=== PATIENT | female | born 1930 | race Caucasian/White ===

== ENCOUNTER 2019-07-11 05:09 | Emergency (ER) | payer MEDICARE ==
--- NOTE | 2019-07-11 05:16 | ED ---
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 She states that she thinks that there is blood bursting from her vagina and notes that there is black/brown stool in her pad. She does not know whether or not the discharge is from vaginal bleeding or stool. Per the pts daughter, the pt was supposed to be given an iron infusion for possible anemia. Pain severity is rated a 0/10. No aggravating or alleviating factors noted. She also reports back pain but denies abd pain. Allergies noted. Medications reviewed. - History of Current Complaint Stated Complaint: VAGINAL BLEEDING PER EMS Hx Obtained From: Patient, EMS Onset/Duration: Started Days Ago, Still Present Timing: Lasting Days Severity: Moderate Current Severity: Moderate Vaginal Bleeding Description: Brown Pain Intensity: 0 Associated Signs and Symptoms: Positive: Back Pain, Diarrhea. Negative: Abdominal Pain Additional Signs & Symptoms: Positive: Vaginal Bleeding - Allergy/Home Medications Allergies/Adverse Reactions: Allergies Allergy/AdvReac Type Severity Reaction Status Date / Time atorvastatin Allergy Severe muscle pain Verified 06/11/19 12:46 hydroxychloroquine Allergy Intermediate Rash Verified 06/11/19 12:46 methotrexate Allergy Intermediate Rash Verified 06/11/19 12:46 Penicillins Allergy Intermediate Rash Verified 06/11/19 12:46 PMH/Surg Hx/FS Hx/Imm Hx Endocrine/Hematology History: Denies: Hx Diabetes, Hx Thyroid Disease Cardiovascular History: Reports: Hx Hypertension, Other Cardiovascular Problems/ Disorders - Hx HTN Denies: Hx Pacemaker/ICD Respiratory History: Reports: Hx Asthma - Hx of, pt states no symptoms Denies: Hx Chronic Obstructive Pulmonary Disease (COPD) GI History: Reports: Other GI Disorders - pt states takes PPI for "gas" Denies: Hx Ulcer History: Reports: Other Problems/Disorders - Hx kidney stones, prolapsed bladder Denies: Hx Renal Disease Musculoskeletal History: Reports: Other Musculoskeletal History - rheumatoid arthritis Sensory History: Denies: Hx Hearing Aid Psychiatric History: Denies: Hx Panic Disorder - Surgical History Surgery Procedure, Year, and Place: Hernia repair , kidney stone Infectious Disease History: Denies: Hx Hepatitis, Hx Human Immunodeficiency Virus (HIV) - Family History Known Family History: Positive: Non-Contributory - Social History Alcohol Use: None Substance Use Type: Reports: None Smoking Status (MU): Never Smoked Tobacco Have You Smoked in the Last Year: No Review of Systems Positive: Diarrhea. Negative: Abdominal Pain Genitourinary: Other - pos - vaginal bleeding Musculoskeletal: Other - pos - back pain All Other Systems Reviewed And Are Negative: Yes Physical Exam - Summary Physical Exam Summary: Constitutional: Well-developed, Well-nourished, Alert. (-) Distressed Skin: Warm, Dry HENT: Normocephalic; Atraumatic Eyes: Conjunctiva normal Neck: Musculoskeletal ROM normal neck. (-) JVD, (-) Stridor, (-) Tracheal deviation Cardio: Rhythm regular, rate normal, Heart sounds normal; Intact distal pulses; The pedal pulses are 2+ and symmetric. Radial pulses are 2+ and symmetric. (-) Murmur Pulmonary/Chest wall: Effort normal. (-) Respiratory distress, (-) Wheezes, (-) Rales Abd: Soft, (-) tenderness, (-) Distension, (-) Guarding, (-) Rebound GIGU: Large quantity of stool in underwear, no blood present, stool is brown, no vaginal bleeding Musculoskeletal: (-) Edema Lymph: (-) Cervical adenopathy Neuro: Alert, Oriented x3 Psych: Mood and affect Normal Triage Information Reviewed: Yes Vital Signs Reviewed: Yes Diagnostics - Laboratory Result Diagrams: 07/11/19 05:36 07/11/19 05:36 Lab Statement: Any lab studies that have been ordered have been reviewed, and results considered in the medical decision making process. GIGU Course/Dx - Course Course Of Treatment: Patient is here with what she thought was vaginal bleeding. On arrival, patient was found to have a large quantity of stool in her underwear with no evidence of bleeding. Patient is overall well-appearing with normal vital signs. Patient is anemic at baseline with a hemoglobin at her baseline. 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 Patient's follow up with her PCP 6 hours after her discharge here. - Diagnoses Provider Diagnoses: Anemia, Diarrhea, CKD (chronic kidney disease) Discharge ED - Sign-Out/Discharge Documenting (check all that apply): Patient Departure - discharge Patient Received Moderate/Deep Sedation with Procedure: No - Discharge Plan Condition: Stable Disposition: HOME Patient Education Materials: Chronic Kidney Disease (ED), Anemia (ED) Referrals: Caron Mace MD [Primary Care Provider] - 3 Days Additional Instructions: Please make an appointment with your PCP as soon as possible. PLEASE RETURN TO EMERGENCY DEPARTMENT FOR ANY NEW OR WORSENING SYMPTOMS. Please follow up with your primary care physician. Please make all follow-ups in 1-3 days unless I advise you otherwise. - Billing Disposition and Condition Condition: STABLE Disposition: Home - Attestation Statements Document Initiated by Shonda: Yes Documenting Scribe: Oli Bee Provider For Whom Lyricibe is Documenting (Include Credential): Gilbert Peters MD Scribe Attestation: IOli, scribed for Gilbert Peters MD on 07/11/19 at 0638. Scribe Documentation Reviewed: Yes Provider Attestation: The documentation as recorded by the Oli morales accurately reflects the service I personally performed and the decisions made by me, Gilbert Peters MD Status of Scribe Document: Viewed
--- OUTSIDE RECORDS SUMMARY | 2019-07-11 05:23 | XMS REPORT | Continuity of Care Document ---
:1930 External Reference #:[id number] Author Name Michael Lowe M.D. (transmitted by agent of provider Terri Biswas) Address [address] [place] [id number] Care Team Providers Name Role Phone Caron Mace MD - Family Care Team Information Supervisor [employer] [phone] Medicine Problems Active Problems Provider Date Essential hypertension Jamar Goodrich, DO FACC Onset: 09/13/2016 Social History Type Date Description Comments Sex Unknown Tobacco Use Start: Unknown Never Smoked Cigarettes Smoking Status Reviewed: 06/30/19 Never Smoked Cigarettes ETOH Use Denies alcohol use Tobacco Use Start: Unknown Patient has never smoked Recreational Drug Use Denies Drug Use Exercise Type/Frequency Does not exercise Allergies, Adverse Reactions, Alerts Active Allergies Reaction Severity Comments Date Penicillin Hives Severe 01/19/2011 Methotrexate rash rash, rechallenged 06/22/2011 Hydroxychloroquine back pain and rash back pain and rash 06/22/2011 Sulfa Drugs Urticaria 09/05/2016 Medications Active Medications SIG Qnty Indications Ordering Provider Date Lisinopril-Hydrochlor Take 1/2 tablet 45tabs Jamar Goodrich, 05/12/2019 othiazide daily DO FACC 10-12.5mg Tablets Metoprolol Succinate 1/2 by mouth 45tabs R00.1 Jamar Goodrich, 09/13/2016 ER every day DO FACC 25mg Tablets ER 24HR Lovastatin take 1 tablet at Unknown 10mg Tablets bedtime Immunizations Description No Information Available Vital Signs Date Vital Result Comment 06/30/2019 3:13pm Height 63 inches 5'3" Weight 129.00 lb Heart Rate 62 /min BP Systolic Sitting 122 mmHg BP Diastolic Sitting 78 mmHg O2 % BldC Oximetry 98 % BMI (Body Mass Index) 22.8 kg/m2 09/26/2018 1:52pm Height 63 inches 5'3" Weight 132.00 lb W/O Shoes Heart Rate 55 /min reg BP Systolic Sitting 125 mmHg la Reg Cuff BP Diastolic Sitting 78 mmHg la Reg Cuff BP Systolic Standing 120 mmHg LA reg cuff BP Diastolic Standing 75 mmHg LA reg cuff Respiratory Rate 17 /min BMI (Body Mass Index) 23.4 kg/m2 Results Test Date Facility Test Result H/L Range Note Laboratory test 06/30/2019 [facility] Creatine 16 U/L Normal 10-[address] Kinase(CK) [place] [address] [phone] CBC Auto Diff 06/30/2019 [facility] White Blood 4.7 10^3/uL Normal 3.5-10.[address] [place] [address] [phone] Red Blood Count 3.25 10^6/uL Low 3.70-4.87 Hemoglobin 7.4 g/dL Low 12.0-16.0 Hematocrit 23 % Low 35-47 Mean Corpuscular Volume 71 fL Low 80-97 1 Mean Corpuscular Hemoglobin 23 pg Low 27-31 Mean Corpuscular HGB Conc 32 g/dL Normal 31-36 Red Cell Distribution Width 17 % High 10-15 Platelet Count 251 10^3/uL Normal 150-450 Mean Platelet Volume 8.8 fL Normal 7.4-10.4 Abs Neutrophils 2.7 10^3/uL Normal 1.5-7.7 Abs Lymphocytes 1.3 10^3/uL Normal 1.0-4.8 Abs Monocytes 0.3 10^3/uL Normal 0-0.8 Abs Eosinophils 0.3 10^3/uL Normal 0-0.6 Abs Basophils 0.1 10^3/uL Normal 0-0.2 Abs Nucleated RBC 0.0 10^3/uL Granulocyte % 56.9 % Lymphocyte % 28.8 % Monocyte % 7.4 % Eosinophil % 5.4 % Basophil % 1.5 % Nucleated Red Blood Cells % 0.0 Iron & Iron 06/30/2019 [facility] Total Iron 400 g/dL Normal 250-[address] [place] [address] Capacity [phone] Transferrin 286 mg/dL Normal 203-362 Iron < 20 g/dL Low 50-212 Unsaturated Iron Binding < 385 g/dL % Iron Saturation 5 % Low 15-55 Laboratory test 06/30/2019 [facility] Ferritin 7.4 ng/mL Low 11-[address] [place] [address] [phone] Vitamin B12 And 06/30/2019 [facility] Vitamin B12 597 pg/mL Normal 180-[address] [place] [address] [phone] Folic Acid (Folate) > 20.00 ng/mL >3.99 Laboratory test 06/30/2019 [facility] Erythrocyte Sed 45 mm/Hr High 0-[address] [place] [address] [phone] C Reactive Protein 1.19 mg/L Normal <8.01 Urine Culture And 06/11/2019 [facility] Urine SEE RESULT 3 , [address] [place] [address] [phone] Poc Urinalysis 06/11/2019 [facility] Poc Negative Negative [address] Glucose, [place] [address] Urine [phone] Poc Bilirubin, Urine Negative Negative Poc Ketone, Urine Negative Negative Poc Specific [place], Urine 1.020 Normal 1.010-1.030 Poc Blood, Urine 1+ Abnormal Negative Poc pH, Urine 6.0 Normal 5-9 Poc Protein, Urine 1+ Abnormal Negative Poc Urobilinogen, Urine 0.2 Negative Poc Nitrite, Urine Negative Negative Poc Leukocytes, Urine 3+ Abnormal Negative Poc Color, Urine Yellow Poc Clarity, Urine Cloudy 5 Comp Metabolic 06/11/2019 [facility] Sodium 138 mmol/L Normal 135-[address] [place] [address] [phone] Potassium 4.8 mmol/L Normal 3.5-5.0 Chloride 105 mmol/L Normal 101-111 Co2 Carbon Dioxide 27 mmol/L Normal 22-32 Anion Gap 6 mmol/L Normal 2-11 Calcium 9.1 mg/dL Normal 8.6-10.3 Albumin 3.9 g/dL Normal 3.2-5.2 Total Bilirubin 0.40 mg/dL Normal 0.2-1.0 Glucose 110 mg/dL High 70-100 Blood Urea Nitrogen 32 mg/dL High 6-24 Creatinine 1.80 mg/dL High 0.51-0.95 BUN/Creatinine Ratio 17.8 Normal 8-20 Total Protein 6.6 g/dL Normal 6.4-8.9 Globulin 2.7 g/dL Normal 2-4 Albumin/Globulin Ratio 1.4 Normal 1-3 Alkaline Phosphatase 51 U/L Normal 34-104 Alt 5 U/L Low 7-52 Ast 11 U/L Low 13-39 Egfr Non- 26.5 >60 Egfr 32.1 >60 6 Laboratory test 06/11/2019 [facility] Magnesium 2.1 mg/dL Normal 1.9-2.7 [address] [place] [address] [phone] TSH (Thyroid Stim Horm) 2.62 mcIU/mL Normal 0.34-5.60 8 CBC Auto 06/11/2019 [facility] White Blood 6.0 10^3/uL Normal 3.5-10.[address] [place] [address] [phone] Red Blood Count 3.36 10^6/uL Low 3.70-4.87 Hemoglobin 7.8 g/dL Low 12.0-16.0 Hematocrit 24 % Low 35-47 Mean Corpuscular Volume 72 fL Low 80-97 Mean Corpuscular Hemoglobin 23 pg Low 27-31 Mean Corpuscular HGB Conc 32 g/dL Normal 31-36 Red Cell Distribution Width 16 % High 10-15 Platelet Count 238 10^3/uL Normal 150-450 Mean Platelet Volume 9.3 fL Normal 7.4-10.4 Abs Neutrophils 3.9 10^3/uL Normal 1.5-7.7 Abs Lymphocytes 1.1 10^3/uL Normal 1.0-4.8 Abs Monocytes 0.6 10^3/uL Normal 0-0.8 Abs Eosinophils 0.3 10^3/uL Normal 0-0.6 Abs Basophils 0.1 10^3/uL Normal 0-0.2 Abs Nucleated RBC 0.0 10^3/uL Granulocyte % 65.7 % Lymphocyte % 19.1 % Monocyte % 9.7 % Eosinophil % 4.4 % Basophil % 1.1 % Nucleated Red Blood Cells % 0.0 Basic Metabolic 05/24/2019 [facility] Sodium 138 mmol/L Normal 135-[address] [place] [address] [phone] Potassium 4.7 mmol/L Normal 3.5-5.0 Chloride 105 mmol/L Normal 101-111 Co2 Carbon Dioxide 25 mmol/L Normal 22-32 Anion Gap 8 mmol/L Normal 2-11 Glucose 102 mg/dL High 70-100 Blood Urea Nitrogen 35 mg/dL High 6-24 Creatinine 1.84 mg/dL High 0.51-0.95 BUN/Creatinine Ratio 19.0 Normal 8-20 Calcium 9.1 mg/dL Normal 8.6-10.3 Egfr Non- 25.9 >60 Egfr 31.3 >60 9 Basic Metabolic 05/10/2019 [facility] Sodium 138 mmol/L Normal 135-145 Panel [address] [place] [address] [phone] Potassium 4.9 mmol/L Normal 3.5-5.0 Chloride 103 mmol/L Normal 101-111 Co2 Carbon Dioxide 26 mmol/L Normal 22-32 Anion Gap 9 mmol/L Normal 2-11 Glucose 116 mg/dL High 70-100 Blood Urea Nitrogen 41 mg/dL High 6-24 Creatinine 2.19 mg/dL High 0.51-0.95 BUN/Creatinine Ratio 18.7 Normal 8-20 Calcium 9.1 mg/dL Normal 8.6-10.3 Egfr Non- 21.2 >60 Egfr 25.6 >60 10 1 Consistent with Previous Results Reported on 06/11/19. 2 Normal Range 180 to 914 Indeterminate Range 145 to 180 Deficient Range <145 3 [id number] SEE RESULT BELOW Name: SOCORROSYBILMARIIBenedictNOREEN : [address]: Rachel Blackwell MD Acct: [id number] Unit: [id number] AGE: 89 Location: [facility] Re06/11/19 SEX: F Status: DEP ER SPEC: [id number] MARCOS: 06/11/19-1420 [facility] DR: Rachel Blackwell MD REQ: [id number] RECD: 06/11/19 STATUS: MARY REDMOND DR: Jamar Goodrich DO _ SOURCE: URINE SPDESC: ORDERED: Urine Culture COMMENTS: [id number] Procedure Result Reported Site Urine Culture Final 06/13/19- 0958 ML Organism 1 KLEBSIELLA PNEUMONIAE [place] Count >100,000 (Many) CFU/ML 1. KLEBSIELLA PNEUMONIAE [facility].I.[facility]. RX --------- ------ Ampicillin >=32 R Cefazolin <=4 S Cefepime <=1 S Ceftriaxone <=1 S Ciprofloxacin <=0.25 S Gentamicin <=1 S Levofloxacin <=0.12 S Meropenem <=0.25 S Nitrofurantoin 32 S Tetracycline >=16 R Pipercillin/Tazobactam <=4 S Trimethoprim/Sulfamethoxazole >=320 R Amoxicillin/Clavulanic Acid 8 S Aztreonam <=1 S Contact the Microbiology Department for any additional antibiotic reporting. * ML - Main Lab . END OF REPORT DEPARTMENT OF PATHOLOGY, [address] [place] [address] Eder Cortez M.D. Director [facility] # [id number] [address] Reporter: [id number] 6 Because ethnic data is not always readily available, this report includes an eGFR for both -Americans and non- Americans. The National Kidney Disease Education Program (NKDEP) does not endorse the use of the MDRD equation for patients that are not between the ages of 18 and 70, are , have extremes of body size, muscle mass, or nutritional status, or are non- or non-. According to the National Kidney Foundation, irrespective of diagnosis, the stage of the disease is based on the level of kidney function: Stage Description GFR(mL/min/1.73 m(2)) 1 Kidney damage with normal or decreased GFR 90 2 Kidney damage with mild decrease in GFR 60-89 3 Moderate decrease in GFR 30-59 4 Severe decrease in GFR 15-29 5 Kidney failure <15 (or dialysis) 7 [id number] 9 Because ethnic data is not always readily available, this report includes an eGFR for both -Americans and non- Americans. The National Kidney Disease Education Program (NKDEP) does not endorse the use of the MDRD equation for patients that are not between the ages of 18 and 70, are , have extremes of body size, muscle mass, or nutritional status, or are non- or non-. According to the National Kidney Foundation, irrespective of diagnosis, the stage of the disease is based on the level of kidney function: Stage Description GFR(mL/min/1.73 m(2)) 1 Kidney damage with normal or decreased GFR 90 2 Kidney damage with mild decrease in GFR 60-89 3 Moderate decrease in GFR 30-59 4 Severe decrease in GFR 15-29 5 Kidney failure <15 (or dialysis) 10 Because ethnic data is not always readily available, this report includes an eGFR for both -Americans and non- Americans. The National Kidney Disease Education Program (NKDEP) does not endorse the use of the MDRD equation for patients that are not between the ages of 18 and 70, are , have extremes of body size, muscle mass, or nutritional status, or are non- or non-. According to the National Kidney Foundation, irrespective of diagnosis, the stage of the disease is based on the level of kidney function: Stage Description GFR(mL/min/1.73 m(2)) 1 Kidney damage with normal or decreased GFR 90 2 Kidney damage with mild decrease in GFR 60-89 3 Moderate decrease in GFR 30-59 4 Severe decrease in GFR 15-29 5 Kidney failure <15 (or dialysis) Procedures Description No Information Available Medical Devices Description No Information Available Encounters Description No Information Available Assessments Date Code Description Provider 06/30/2019 M54.5 Low back pain Michael Lowe M.D. 06/30/2019 M54.6 Pain in thoracic spine Michael Lowe M.D. 06/30/2019 R70.0 Elevated erythrocyte sedimentation rate Michael Lowe M.D. 06/30/2019 D64.9 Anemia, unspecified Michael Lowe M.D. 06/30/2019 M79.10 Myalgia, unspecified site Michael Lowe M.D. Plan of Treatment Future Appointment(s):07/22/2019 4:20 pm - Michael Lowe M.D. at [facility]06/30/2019 - Michael Lowe M.D.M54.5 Low back painM54.6 Pain in thoracic zpcxsQ54.0 Elevated erythrocyte sedimentation rateD64.9 Anemia, unspecifiedFollow up:Follow up in 3 weeks or sooner if [id number] Myalgia, unspecified site Functional Status Description No Information Available Mental Status Description No Information Available Referrals Description No Information Available
--- OUTSIDE RECORDS SUMMARY | 2019-07-11 05:23 | XMS REPORT | Continuity of Care Document ---
:1930 External Reference #:[id number] Author Name CHIARA Bailey Address [address] [place] [address] Care Team Providers Name Role Phone Caron Mace M.D. 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 Problems Description No Information Available Social History Type Date Description Comments Sex Unknown Allergies, Adverse Reactions, Alerts Active Allergies Reaction Severity Comments Date Ampicillin 07/30/1999 Sulfa Drugs 07/30/1999 Macrodantin 07/30/1999 Medications Active Medications SIG Qnty Indications Ordering Provider Date Nitrofurantoin 1 by mouth 10caps Gail 06/12/2019 Macrocrystal twice a day x Bella, [employer] PROFESSIONAL 100mg Capsules 7Days Acetaminophen 1-2 by mouth 120tabs M54.9 Gail 06/12/2019 500mg Tablets every 12 hours Bella [employer] PROFESSIONAL as needed pain Lisinopril-Hydrochlorot 1 by mouth Unknown hiazide every day 10-12.5mg Tablets Metoprolol Succinate ER 1/2 by mouth Unknown every day 25mg Tablets ER 24HR Immunizations Description No Information Available Vital Signs Date Vital Result Comment 06/12/2019 2:09pm BP Systolic 100 mmHg BP Diastolic 70 mmHg Heart Rate 72 /min Body Temperature 98.1 F Respiratory Rate 18 /min Weight 129.00 lb 07/30/1999 10:47am BP Systolic 146 mmHg BP Diastolic 84 mmHg Body Temperature 97.9 F Height 65 inches 5'5" Weight 206.50 lb Results Description No Information Available Procedures Description No Information Available Medical Devices Description No Information Available Encounters Description No Information Available Assessments Date Code Description Provider 06/12/2019 M54.9 Dorsalgia, unspecified CHIARA Bailey 06/12/2019 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, thoracic region CHIARA Bailey 06/12/2019 R29.6 Repeated falls Gail Blanco, CHIARA 06/12/2019 R13.10 Dysphagia, unspecified CHIARA Bailey Plan of Treatment Future Appointment(s):08/07/2019 8:00 am - CHIARA Bailey at [facility]06/12/2019 - Gail Blanco, FNPM54.9 Dorsalgia, unspecifiedNew Medication:Acetaminophen 500 mg - 1-2 by mouth every 12 hours as needed painComments:I suspect scoliosis is to blame, and doubt we can do much for it Hot shower in the morning, stretch and gentle range of motion exercises every dayKeep active to the limits of comfort Call PATRICK if condition changes/worsens in any way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, thoracic taphadU17.6 Repeated kllqvX71.10 Dysphagia, unspecifiedComments:Moisten your food adequately and always sit up while eating Drink plenty of fluids with each mealAllFollow up: CPE with Dr Mace within the next 6 months Functional Status Description No Information Available Mental Status Description No Information Available Referrals Description No Information Available
[2019-07-11 06:15] LABS: ABS Lymphocytes 0.8 10^3/ul (1.0-4.8); ABS Monocytes 0.3 10^3/ul (0-0.8); ABS Neutrophils 5.2 10^3/ul (1.5-7.7); ALT 5 U/L (7-52); AST 13 U/L (13-39); Albumin 3.8 g/dL (3.2-5.2); Albumin/Globulin Ratio 1.3 (1-3); Alkaline Phosphatase 64 U/L (34-104); Anion Gap 11 mmol/L (2-11); Blood Urea Nitrogen 39 mg/dL (6-24); CO2 Carbon Dioxide 20 mmol/L (22-32); Chloride 101 mmol/L (101-111); EGFR African American 29.2 (>60); EGFR Non-African American 24.2 (>60); Eosinophil % 0.6 %; Glucose 152 mg/dL (70-100); Hematocrit 25 % (35-47); Mean Corpuscular HGB Conc 32 g/dL (31-36); Mean Corpuscular Hemoglobin 23 pg (27-31); Mean Corpuscular Volume 71 fL (80-97); Mean Platelet Volume 8.8 fL (7.4-10.4); Platelet Count 251 10^3/uL (150-450); Potassium 4.4 mmol/L (3.5-5.0); Red Blood Count 3.56 10^6 /uL (3.70-4.87); Red Cell Distribution Width 17 % (10-15); Sodium 132 mmol/L (135-145); Total Protein 6.8 g/dL (6.4-8.9); White Blood Count 6.4 10^3/uL (3.5-10.8)
[2019-07-11 06:55] VITALS: BP 123/63
[2019-07-11 14:34] LABS: % Iron Saturation 6 % (15-55); Iron 23 ug/dL (50-212); Total Iron Binding Capacity 396 mcg/dL (250-450); Transferrin 283 mg/dL (203-362)
[2019-07-11 14:54] LABS: Ferritin 7.4 ng/mL (11-307)
== END 2019-07-11 06:56 | disposition home or self-care (01) ==
LOC: ED 05:09
DX: I12.9 Hypertensive chronic kidney disease with stage 1 through stage 4 chronic kidney disease, or unspecified chronic kidney disease (principal); N18.9 Chronic kidney disease, unspecified; D63.1 Anemia in chronic kidney disease; R19.7 Diarrhea, unspecified; M54.9 Dorsalgia, unspecified; M06.9 Rheumatoid arthritis, unspecified; Z88.0 Allergy status to penicillin; Z88.8 Allergy status to other drugs, medicaments and biological substances
CPT/HCPCS: 36415; 80053; 82728; 83540; 83550; 85025; 99283

== ENCOUNTER 2019-09-29 05:48 | Inpatient (IN) | payer MEDICARE, OTHER ==
[~2019-09-29 05:48] MED LIST: Buffered Lidocaine 1% SYRIN* 1 ML/SYRINGE INTRADERM ONE
--- OUTSIDE RECORDS SUMMARY | 2019-09-29 05:52 | XMS REPORT | Continuity of Care Document ---
:1930 External Reference #:[id number] Author Name Sal Bennett MD (transmitted by agent of provider Matthias Boyle) Address [address] [place] [id number] Care Team Providers Name Role Phone Caorn Mace MD - Family Care Team Information Perl Developer [phone] Medicine Jomar Barth M.D. - Hematology & Care Team Information Perl Developer [phone] Oncology Problems Active Problems Provider Date Essential hypertension Jamar Goodrich DO [facility] Onset: 09/13/2016 Social History Type Date Description Comments Sex Unknown Tobacco Use Start: Unknown Never Smoked Cigarettes Smoking Status Reviewed: 09/19/19 Never Smoked Cigarettes ETOH Use Denies alcohol use Tobacco Use Start: Unknown Patient has never smoked Recreational Drug Use Denies Drug Use Exercise Type/Frequency Does not exercise Allergies, Adverse Reactions, Alerts Active Allergies Reaction Severity Comments Date Penicillin Hives Severe 01/19/2011 Methotrexate rash rash, rechallenged 06/22/2011 Hydroxychloroquine back pain and rash back pain and rash 06/22/2011 Sulfa Drugs Urticaria 09/05/2016 Ampicillin rash 09/19/2019 Medications Active Medications SIG Qnty Indications Ordering Provider Date Tramadol HCL take one 14tabs Michael Lowe, 07/08/2019 50mg capsule/tablet M.D. Tablets by mouth twice daily as needed for pain Iron (Ferrous take one 60tabs Michael Lowe, 07/05/2019 Sulfate) capsule/tablet M.D. 142(45Fe) mg daily by mouth Tablets ER History Medications Lisinopril-Hydrochlorothiazide Take 1/2 45tabs Jamar Cee 05/12/2019 - 10-12.5mg Tablets tablet daily DO Kp 09/10/2019 [facility] Immunizations Description No Information Available Vital Signs Date Vital Result Comment 09/19/2019 9:58am Height 63 inches 5'3" Weight 120.00 lb Heart Rate 72 /min BP Systolic Sitting 122 mmHg BP Diastolic Sitting 74 mmHg Respiratory Rate 16 /min Body Temperature 98.7 F BMI (Body Mass Index) 21.3 kg/m2 09/17/2019 8:46am Height 63 inches 5'3" Weight 120.00 lb with shoes Heart Rate 60 /min BP Systolic Sitting 120 mmHg Ra BP Diastolic Sitting 80 mmHg Ra BP Systolic Standing 116 mmHg Ra BP Diastolic Standing 80 mmHg Ra BMI (Body Mass Index) 21.3 kg/m2 Ejection Fraction 60-65% Echo 12 12/07 Results Test Acquired Date Facility Test Result H/L Range Note Laboratory test 06/30/2019 [facility] Creatine 16 U/L Normal 10-[address] Kinase(CK) [place] [address] [phone] CBC Auto Diff 06/30/2019 [facility] White Blood 4.7 Normal 3.5 -10.[address] Count 10^3/[place] [address] [phone] Red Blood Count 3.25 10^6/uL Low 3.70-4.87 [...] Cells % 0.0 Iron & Iron 06/30/2019 [facility] Total Iron 400 g/dL Normal 250-[address] [place] [address] Capacity [phone] Transferrin 286 mg/dL Normal 203-362 Iron < 20 g/dL Low 50-212 Unsaturated Iron Binding < 385 g/dL % Iron Saturation 5 % Low 15-55 Laboratory test 06/30/2019 [facility] Ferritin 7.4 ng/mL Low 11-[address] [place] [address] [phone] Vitamin B12 And 06/30/2019 [facility] Vitamin B12 597 pg/mL Normal 180-914 [address] [place] [address] [phone] Folic Acid (Folate) > 20.00 ng/mL >3.99 Laboratory test 06/30/2019 [facility] Erythrocyte Sed 45 mm/Hr High 0-[address] [place] [address] [phone] C Reactive Protein 1.19 mg/L Normal <8.01 Protein 06/30/2019 [facility] Total 6.9 g/dL 6.3 - Electrophoresis [address] Protein(Pep) 7.9 [place] [address] [phone] Albumin 3.1 g/dL Abnormal 3.4-4.7 Alpha-1 Globulin 0.3 g/dL 0.1-0.3 Alpha-2 Globulin 1.0 g/dL 0.6-1.0 Beta Globulin 1.1 g/dL 0.7-1.2 Gamma Globulin 1.5 g/dL 0.6-1.6 Albumin/Globulin Ratio 0.82 Impression See Comment 3 Urine Culture And 06/11/2019 [facility] Urine SEE RESULT 4 , [address] [place] [place] [address] [phone] Poc Urinalysis 06/11/2019 [facility] Poc Negative Negative [address] Glucose, [place] [address] Urine [phone] Poc Bilirubin, Urine Negative Negative Poc Ketone, Urine Negative Negative Poc Specific [place], Urine 1.020 Normal 1.010-1.030 Poc Blood, Urine 1+ Abnormal Negative Poc pH, Urine 6.0 Normal 5-9 Poc Protein, Urine 1+ Abnormal Negative Poc Urobilinogen, Urine 0.2 Negative Poc Nitrite, Urine Negative Negative Poc Leukocytes, Urine 3+ Abnormal Negative Poc Color, Urine Yellow Poc Clarity, Urine Cloudy 6 Comp Metabolic 06/11/2019 [facility] Sodium 138 mmol/L Normal 135-[address] [place] [address] [phone] Potassium 4.8 mmol/L Normal 3.5-5.0 Chloride 105 [...] Egfr Non- 26.5 >60 Egfr 32.1 >60 7 Laboratory test 06/11/2019 [facility] Magnesium 2.1 mg/dL Normal 1.9-2.7 [address] [place] [address] [phone] TSH (Thyroid Stim Horm) 2.62 mcIU/mL Normal 0.34-5.60 9 CBC Auto 06/11/2019 [facility] White Blood 6.0 10^3/uL Normal 3.5-10.[address] [place] [address] [phone] Red Blood Count 3.36 10^6/uL Low 3.70-4.87 [...] Blood Cells % 0.0 Basic Metabolic 05/24/2019 [facility] Sodium 138 mmol/L Normal 135-145 Panel [address] [place] [address] [phone] Potassium 4.7 mmol/L Normal 3.5-5.0 Chloride 105 mmol/L Normal 101-111 Co2 Carbon Dioxide 25 mmol/L Normal 22-32 Anion Gap 8 mmol/L Normal 2-11 Glucose 102 mg/dL High 70-100 Blood Urea Nitrogen 35 mg/dL High 6-24 Creatinine 1.84 mg/dL High 0.51-0.95 BUN/Creatinine Ratio 19.0 Normal 8-20 Calcium 9.1 mg/dL Normal 8.6-10.3 Egfr Non- 25.9 >60 Egfr 31.3 >60 10 Basic Metabolic 05/10/2019 [facility] Sodium 138 mmol/L Normal 135-145 Panel [address] [place] [address] [phone] Potassium 4.9 mmol/L Normal 3.5-5.0 Chloride 103 mmol/L Normal 101-111 Co2 Carbon Dioxide 26 mmol/L Normal 22-32 Anion Gap 9 mmol/L Normal 2-11 Glucose 116 mg/dL High 70-100 Blood Urea Nitrogen 41 mg/dL High 6-24 Creatinine 2.19 mg/dL High 0.51-0.95 BUN/Creatinine Ratio 18.7 Normal 8-20 Calcium 9.1 mg/dL Normal 8.6-10.3 Egfr Non- 21.2 >60 Egfr 25.6 >60 11 1 Consistent with Previous Results Reported on 06/11/19. 2 Normal Range 180 to 914 Indeterminate Range 145 to 180 Deficient Range <145 3 RESULT: No apparent monoclonal protein on serum electrophoresis. Test Performed by: [facility] [address] [place] [address] Transit Mixer Driver: Samy Tracey M.D. Ph.D.; CLIA# [id number] 4 [id number] 5 SEE RESULT BELOW Name: NOREEN GORDON : [address]: Rachel Blackwell MD Acct: [id number] Unit: [id number] AGE: 89 Location: [facility] Re06/11/19 SEX: F Status: DEP ER SPEC: [id number] MARCOS: 06/11/19-[address] [facility] [address]: Rachel Blackwell MD REQ: [id number] RECD: 06/11/19 STATUS: MARY REDMOND DR: Jamar Goodrich DO _ SOURCE: URINE SPDESC: ORDERED: Urine Culture COMMENTS: [id number] Procedure Result Reported Site Urine Culture Final 06/13/19- 0958 ML Organism 1 KLEBSIELLA PNEUMONIAE [place] Count >100,000 (Many) CFU/ML 1. KLEBSIELLA PNEUMONIAE [...] . END OF REPORT DEPARTMENT OF PATHOLOGY, [address] [place] [address] Eder Cortez M.D. Director [facility] # [id number] Plant Maintenance Manager: [id number] 7 Because ethnic data is not always readily [...] 15-29 5 Kidney failure <15 (or dialysis) 8 [id number] 10 Because ethnic data is not always [...] 15-29 5 Kidney failure <15 (or dialysis) 11 Because ethnic data is not always readily [...] 5 Kidney failure <15 (or dialysis) Procedures Date Code Description Status 09/17/2019 54837 EKG Tracing & Interpretation Completed 09/01/2019 26605661 Colonoscopy Completed Medical Devices Description No Information Available Encounters Type Date Location Provider Dx Diagnosis Office Visit 07/22/2019 [facility] Michael Lowe M54.5 Low back pain 4:20p Of Consumer Sales Representative M.D. M54.6 Pain in thoracic spine R70.0 Elevated erythrocyte sedimentation rate D64.9 Anemia, unspecified Office Visit 06/30/2019 3:00p [facility] Michael Lowe M54.5 Low back Of Consumer Sales Representative M.D. pain M54.6 Pain in thoracic spine R70.0 Elevated erythrocyte sedimentation rate D64.9 Anemia, unspecified M79.10 Myalgia, unspecified site Assessments Date Code Description Provider 09/17/2019 Z01.810 Encounter for preprocedural Jamar Goodrich, DO [facility] cardiovascular examination 09/17/2019 C18.9 Malignant neoplasm of colon, unspecified Jamar Goodrich, DO FAC 09/17/2019 I10 Essential (primary) hypertension Jamar Goodrich, DO [facility] 09/17/2019 D50.9 Iron deficiency anemia, unspecified Jamar Goodrich, DO FAC 09/17/2019 N18.9 Chronic kidney disease, unspecified Jamar Goodrich, DO [facility] 09/17/2019 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 07/22/2019 M54.6 Pain in thoracic spine Michael Lowe M.D. 07/22/2019 R70.0 Elevated erythrocyte sedimentation rate Michael Lowe M.D. 07/22/2019 D64.9 Anemia, unspecified Michael Lowe M.D. 06/30/2019 M54.5 Low back pain Michael Lowe M.D. 06/30/2019 M54.6 Pain in thoracic spine Michael Lowe M.D. 06/30/2019 R70.0 Elevated erythrocyte sedimentation rate Michael Lowe M.D. 06/30/2019 D64.9 Anemia, unspecified Michael Lowe M.D. 06/30/2019 M79.10 Myalgia, unspecified site Michael Lowe M.D. Plan of Treatment Future Appointment(s):09/23/2019 9:30 am - Clau Julian M.D. at [facility]11/24/2019 10:00 am - Michael Lowe M.D. at [facility]09/17/2019 - Jamar Goodrich DO FACCZ01.810 Encounter for preprocedural cardiovascular examinationNew Orders:Stress Test, Pharmacologic Nuclear (Lexiscan), Ordered: 09/17/19Follow up:Please schedule stress test [facility] office, any doctor next available F/u PRNC18.9 Malignant neoplasm of colon, bouznenoamyX22 Essential (primary) kiuyxcmglcnyN67.9 Iron deficiency anemia, xlirsknlbwmZ27.9 Chronic kidney disease, xkpjnwqgysdK29.3 Trifascicular block Functional Status Description No Information Available Mental Status Description No Information Available Referrals Refer to Reason for Referral Status Appt Date Alex Hawkins MD Please evaluate patient with significant iron Sent deficiency anemia for a possible transfusion and evaluate possible etiologies [address] [place] [address] [phone]
--- OUTSIDE RECORDS SUMMARY | 2019-09-29 05:52 | XMS REPORT | Continuity of Care Document ---
:1930 External Reference #:[id number] Author Name Jamar Goodrich DO [facility] (transmitted by agent of provider Coretta Gonzalez) Address [address] [place] [address] Care Team Providers Name Role Phone Caron Mace MD - Family Care Team Information Aquatic Habitat Biologist [phone] Medicine Jomar Barth M.D. - Hematology & Care Team Information Aquatic Habitat Biologist [phone] Oncology Problems Active Problems Provider Date Essential hypertension Jamar Goodrich DO [facility] Onset: 09/13/2016 Social History Type Date Description Comments Sex Unknown Tobacco Use Start: Unknown Never Smoked Cigarettes Smoking Status Reviewed: 09/17/19 Never Smoked Cigarettes ETOH Use Denies alcohol [...] 10-12.5mg Tablets tablet daily DO Kp 09/10/2019 FAC Immunizations Description No Information Available Vital Signs Date Vital Result Comment 09/17/2019 8:46am Height 63 inches 5'3" Weight 120.00 lb with shoes Heart Rate 60 /min BP Systolic Sitting 120 mmHg Ra BP Diastolic Sitting 80 mmHg Ra BP Systolic Standing 116 mmHg Ra BP Diastolic Standing 80 mmHg Ra BMI (Body Mass Index) 21.3 kg/m2 Ejection Fraction 60-65% Echo 12 12/0707/22/2019 4:25pm Height 63 inches 5'3" Weight 121.50 lb Heart Rate 59 /min BP Systolic Sitting 112 mmHg BP Diastolic Sitting 60 mmHg Pain Level 0 O2 % BldC Oximetry 98 % BMI (Body Mass Index) 21.5 kg/m2 Results Test Acquired Date Facility Test Result H/L Range Note Laboratory test 06/30/2019 [facility] Creatine 16 U/L Normal 10-[address] Kinase(CK) [place] [address] [phone] CBC Auto Diff 06/30/2019 [facility] White Blood 4.7 Normal 3.5 -10.[address] Count 10^3/[place] [address] [phone] Red Blood Count 3.25 10^6/uL Low 3.70-4.87 [...] Cells % 0.0 Iron & Iron 06/30/2019 [facility] Total Iron 400 g/dL Normal 250-[address] [place] [address] Capacity [phone] Transferrin 286 mg/dL Normal 203-362 Iron < 20 g/dL Low 50-212 Unsaturated Iron Binding < 385 g/dL % Iron Saturation 5 % Low 15-55 Laboratory test 06/30/2019 [facility] Ferritin 7.4 ng/mL Low 11-[address] [place] [address] [phone] Vitamin B12 And 06/30/2019 [facility] Vitamin B12 597 pg/mL Normal 180-914 [address] [place] [address] [phone] Folic Acid (Folate) > 20.00 ng/mL >3.99 Laboratory test 06/30/2019 [facility] Erythrocyte Sed 45 mm/Hr High 0-[address] [place] [address] [phone] C Reactive Protein 1.19 mg/L Normal <8.01 Protein 06/30/2019 [facility] Total 6.9 g/dL 6.3 - Electrophoresis [address] Protein(Pep) 7.9 [place] [address] [phone] Albumin 3.1 g/dL Abnormal 3.4-4.7 Alpha-1 Globulin 0.3 g/dL 0.1-0.3 Alpha-2 Globulin 1.0 g/dL 0.6-1.0 Beta Globulin 1.1 g/dL 0.7-1.2 Gamma Globulin 1.5 g/dL 0.6-1.6 Albumin/Globulin Ratio 0.82 Impression See Comment 3 Urine Culture And 06/11/2019 [facility] Urine SEE RESULT 4 , [address] [place] [address] [phone] Poc Urinalysis 06/11/2019 [facility] Poc Negative Negative [address] Glucose, [place] [address] Urine [phone] Poc Bilirubin, Urine Negative Negative Poc Ketone, Urine Negative Negative Poc Specific [place], Urine 1.020 Normal 1.010-1.030 Poc Blood, Urine 1+ Abnormal Negative Poc pH, Urine 6.0 Normal 5-9 Poc Protein, Urine 1+ Abnormal Negative Poc Urobilinogen, Urine 0.2 Negative Poc Nitrite, Urine Negative Negative Poc Leukocytes, Urine 3+ Abnormal Negative Poc Color, Urine Yellow Poc Clarity, Urine Cloudy 6 Comp Metabolic 06/11/2019 [facility] Sodium 138 mmol/L Normal 135-[address] [place] [address] [phone] Potassium 4.8 mmol/L Normal 3.5-5.0 Chloride 105 [...] Egfr 32.1 >60 7 Laboratory test 06/11/2019 [facility] Magnesium 2.1 mg/dL Normal 1.9-2.[address] [place] [address] [phone] TSH (Thyroid Stim Horm) 2.62 mcIU/mL Normal 0.34-5.60 9 CBC Auto 06/11/2019 [facility] White Blood 6.0 10^3/uL Normal 3.5-10.[address] [place] [address] [phone] Red Blood Count 3.36 10^6/uL Low 3.70-4.87 [...] Blood Cells % 0.0 Basic Metabolic 05/24/2019 [facility] Sodium 138 mmol/L Normal 135-145 Panel [address] [place] [address] [phone] Potassium 4.7 mmol/L Normal 3.5-5.0 Chloride 105 mmol/L Normal 101-111 Co2 Carbon Dioxide 25 mmol/L Normal 22-32 Anion Gap 8 mmol/L Normal 2-11 Glucose 102 mg/dL High 70-100 Blood Urea Nitrogen 35 mg/dL High 6-24 Creatinine 1.84 mg/dL High 0.51-0.95 BUN/Creatinine Ratio 19.0 Normal 8-20 Calcium 9.1 mg/dL Normal 8.6-10.3 Egfr Non- 25.9 >60 Egfr 31.3 >60 10 Basic Metabolic 05/10/2019 [facility] Sodium 138 mmol/L Normal 135-145 Panel [address] [place], [place] [address] [phone] Potassium 4.9 mmol/L Normal 3.5-5.0 Chloride 103 [...] protein on serum electrophoresis. Test Performed by: [facility] [address] [place] [address] Cookie Breaker: Samy Tracey M.D. Ph.D.; CLIA# [id number] 4 [id number] 5 SEE RESULT BELOW Name: NOREEN GORDON : [address]: Rachel Blackwell MD Acct: [id number] Unit: [id number] AGE: 89 Location: [facility] Re06/11/19 SEX: F Status: DEP ER SPEC: [id number] MARCOS: 06/11/19-[address] [facility] [address]: Rachel Blackwell MD REQ: [id number] RECD: 06/11/19 STATUS: MARY REDMOND DR: Jamar Goodrich DO _ SOURCE: URINE SPDESC: ORDERED: Urine Culture COMMENTS: [id number] Procedure Result Reported Site Urine Culture Final 06/13/19- 0958 ML Organism 1 KLEBSIELLA PNEUMONIAE [place] Count >100,000 (Many) CFU/ML 1. KLEBSIELLA PNEUMONIAE [...] . END OF REPORT DEPARTMENT OF PATHOLOGY, [address] [place] [address] Eder Cortez M.D. Director [facility] # [id number] 6 Animal Rides Manager: [id number] 7 Because ethnic data is not always [...] 5 Kidney failure <15 (or dialysis) 8 [id number] 10 Because ethnic data is not always [...] dialysis) Procedures Date Code Description Status 09/17/2019 17819 EKG Tracing & Interpretation Completed 09/01/2019 31118947 Colonoscopy Completed Medical Devices Description No Information Available Encounters Type Date Location Provider Dx Diagnosis Office Visit 09/17/2019 [facility] Jamar Cee Z01.810 Encounter for 9:00a Of Elo Goodrich DO preprocedural [facility] cardiovascular examination Office Visit 07/22/2019 Rheumatology Michael Lowe M54.5 Low back pain 4:20p Services Of Elo M.DCheyanne M54.6 Pain in thoracic spine R70.0 Elevated erythrocyte sedimentation rate D64.9 Anemia, unspecified Office Visit 06/30/2019 3:00p [facility]ology Services Michael Lowe M54.5 Low back Of Elo M.DCheyanne pain M54.6 Pain in thoracic spine R70.0 Elevated erythrocyte sedimentation rate D64.9 Anemia, unspecified M79.10 Myalgia, unspecified site Assessments Date Code Description Provider 09/17/2019 Z01.810 Encounter for preprocedural Jamar Goodrich DO [facility] cardiovascular examination 07/22/2019 M54.5 Low back pain Michael Lowe [...] 9:30 am - Clau Julian M.D. at [facility]11/24/2019 10:00 am - Michael Lowe M.D. at [facility]09/17/2019 - [facility] Encounter for preprocedural cardiovascular examinationNew Orders:Stress Test, Pharmacologic Nuclear (Lexiscan), Ordered: 09/17/19Follow up:Please schedule stress test [facility] office, any doctor next available F/u PRN Functional Status Description No Information Available Mental Status Description No Information Available Referrals Refer to Dr Reason for Referral Status Appt Date Alex Hawkins MD Please evaluate patient with significant iron Sent deficiency anemia for a possible transfusion and evaluate possible etiologies [address] [facility] [address] [place] [address] [phone]
--- OUTSIDE RECORDS SUMMARY | 2019-09-29 05:52 | XMS REPORT | Continuity of Care Document ---
:1930 External Reference #:[id number] Author Name Sal Bennett MD (transmitted by agent of provider Sarah López) Address [address] [place] [id number] Care Team Providers Name Role Phone Caron Mace MD - Family Care Team Information Setup Operator [phone] Medicine Problems Active Problems Provider Date Essential hypertension Jamar Goodrich DO [facility] Onset: 09/13/2016 Social History Type Date Description Comments Sex Unknown Tobacco Use Start: Unknown Never Smoked Cigarettes Smoking Status Reviewed: 09/25/19 Never Smoked Cigarettes ETOH Use Denies alcohol [...] Medications Active Medications SIG Qnty Indications Ordering Date Provider Neomycin 500mg tablets take 6units Sal Treadwell 09/25/2019 2 tablets by mouth MD Sabrina at 1pm, 2pm, 11pm the day before surgery Metronidazole one tablet by mouth 3tabs Sal Treadwell 09/25/2019 500mg at 1pm, 2 pm, and MD Sabrina Tablets 11pm the day before surgery Suprep Bowel Prep Kit take according to 354ml Sal Treadwell 09/25/2019 the instructions MD Sabrina 17.5-3.13-1.6GM/177ML you received, take Solution one dose at noon and the second dose at 8pm before the oral antibiotics Tramadol HCL take one 14tabs Michael Lowe, 07/08/2019 50mg capsule/tablet by M.D. Tablets mouth twice daily as needed for pain Iron (Ferrous take one 60tabs Michael Lowe, 07/05/2019 Sulfate) capsule/tablet M.DCheyanne 142(45Fe) mg daily by mouth Tablets ER History Medications Lisinopril-Hydrochlorothiazide Take 1/2 45tabs Jamar S. 05/12/2019 - 10-12.5mg Tablets tablet daily Goodrich, DO 09/10/2019 FACC Medications Administered in Office Medication SIG Qnty Indications Ordering Provider Date Inj, Regadenoson, 0.1 MG Andrew Malave M.D., 09/23/2019 Injection FACC, FASNC Technetium TC 99M Andrew Malave M.D., 09/23/2019 Tetrofosmin, Per Unit Dose FACC, FASNC Up To 40 Millicuries Injection Technetium TC 99M Andrew Malave M.D., 09/23/2019 Tetrofosmin, Per Unit Dose FACC, FASEDWARD Up To 40 Millicuries Injection Immunizations Description No Information Available Vital Signs Date Vital Result Comment 09/25/2019 2:46pm Height 63 inches 5'3" Weight 120.00 lb Heart Rate 62 /min BP Systolic Sitting 124 mmHg BP Diastolic Sitting 76 mmHg Respiratory Rate 12 /min Body Temperature 98.7 F BMI (Body Mass Index) 21.3 kg/m2 09/19/2019 9:58am Height 63 inches 5'3" Weight 120.00 lb Heart Rate 72 /min BP Systolic Sitting 122 mmHg BP Diastolic Sitting 74 mmHg Respiratory Rate 16 /min Body Temperature 98.7 F BMI (Body Mass Index) 21.3 kg/m2 Results Test Acquired Date Facility Test Result H/L Range Note Protein 06/30/2019 [facility] Total 6.9 g/dL 6.3 - 7.[address] Protein([place] [address] p) [phone] Albumin 3.1 g/dL Abnormal 3.4-4.7 Alpha-1 Globulin 0.3 g/dL 0.1-0.3 Alpha-2 Globulin 1.0 g/dL 0.6-1.0 Beta Globulin 1.1 g/dL 0.7-1.2 Gamma Globulin 1.5 g/dL 0.6-1.6 Albumin/Globulin Ratio 0.82 Impression See Comment 1 Laboratory test 06/30/2019 [facility] Erythrocyte Sed 45 mm/Hr High 0-[address] [place] [address] [phone] C Reactive Protein 1.19 mg/L Normal <8.01 Vitamin B12 06/30/2019 [facility] Vitamin B12 597 pg/mL Normal 180-914 [address] F[address] [place] [address] [phone] Folic Acid (Folate) > 20.00 ng/mL >3.99 Laboratory test 06/30/2019 [facility] Ferritin 7.4 ng/mL Low 11-[address] [place] [address] [phone] Iron & Iron 06/30/2019 [facility] Total Iron 400 g/dL Normal 250-[address] [place] [address] Capacity [phone] Transferrin 286 mg/dL Normal 203-362 Iron < 20 g/dL Low 50-212 Unsaturated Iron Binding < 385 g/dL % Iron Saturation 5 % Low 15-55 CBC Auto 06/30/2019 [facility] White Blood 4.7 10^3/uL Normal 3.5-10.[address] [place] [address] [phone] Red Blood Count 3.25 10^6/uL Low 3.70-4.87 Hemoglobin 7.4 g/dL Low 12.0-16.0 Hematocrit 23 % Low 35-47 Mean Corpuscular Volume 71 fL Low 80-97 3 Mean Corpuscular Hemoglobin 23 pg Low 27-31 [...] % Nucleated Red Blood Cells % 0.0 Laboratory test 06/30/2019 [facility] Creatine 16 U/L Normal 10-[address] Kinase(CK) [place] [address] [phone] Urine Culture 06/11/2019 [facility] Urine SEE RESULT 4, And [address] Culture BELOW 5 [place] [address] [phone] Poc Urinalysis 06/11/2019 [facility] Poc Glucose, Negative Negative [address] [place] [address] [phone] Poc Bilirubin, Urine Negative Negative Poc Ketone, Urine Negative Negative Poc Specific [place], Urine 1.020 Normal 1.010-1.030 Poc Blood, Urine 1+ Abnormal Negative Poc pH, Urine 6.0 Normal 5-9 Poc Protein, Urine 1+ Abnormal Negative Poc Urobilinogen, Urine 0.2 Negative Poc Nitrite, Urine Negative Negative Poc Leukocytes, Urine 3+ Abnormal Negative Poc Color, Urine Yellow Poc Clarity, Urine Cloudy 6 Comp Metabolic 06/11/2019 [facility] Sodium 138 mmol/L Normal 135-[address] [place] [address] [phone] Potassium 4.8 mmol/L Normal 3.5-5.0 Chloride 105 [...] Egfr 32.1 >60 7 Laboratory test 06/11/2019 [facility] Magnesium 2.1 mg/dL Normal 1.9-2.7 [address] [place] [address] [phone] TSH (Thyroid Stim Horm) 2.62 mcIU/mL Normal 0.34-5.60 9 CBC Auto 06/11/2019 [facility] White Blood 6.0 10^3/uL Normal 3.5-10.[address] [place] [address] [phone] Red Blood Count 3.36 10^6/uL Low 3.70-4.87 [...] Blood Cells % 0.0 Basic Metabolic 05/24/2019 [facility] Sodium 138 mmol/L Normal 135-145 Panel [address] [place] [address] [phone] Potassium 4.7 mmol/L Normal 3.5-5.0 Chloride 105 mmol/L Normal 101-111 Co2 Carbon Dioxide 25 mmol/L Normal 22-32 Anion Gap 8 mmol/L Normal 2-11 Glucose 102 mg/dL High 70-100 Blood Urea Nitrogen 35 mg/dL High 6-24 Creatinine 1.84 mg/dL High 0.51-0.95 BUN/Creatinine Ratio 19.0 Normal 8-20 Calcium 9.1 mg/dL Normal 8.6-10.3 Egfr Non- 25.9 >60 Egfr 31.3 >60 10 Basic Metabolic 05/10/2019 [facility] Sodium 138 mmol/L Normal 135-[address] [place] [address] [phone] Potassium 4.9 mmol/L Normal 3.5-5.0 Chloride 103 mmol/L Normal 101-111 Co2 Carbon Dioxide 26 mmol/L Normal 22-32 Anion Gap 9 mmol/L Normal 2-11 Glucose 116 mg/dL High 70-100 Blood Urea Nitrogen 41 mg/dL High 6-24 Creatinine 2.19 mg/dL High 0.51-0.95 BUN/Creatinine Ratio 18.7 Normal 8-20 Calcium 9.1 mg/dL Normal 8.6-10.3 Egfr Non- 21.2 >60 Egfr 25.6 >60 11 1 RESULT: No apparent monoclonal protein on serum electrophoresis. Test Performed by: [facility] [address] [place] [address] Gang Leader: Samy Tracey M.D. Ph.D.; CLIA# [id number] 2 Normal Range 180 to 914 Indeterminate Range 145 to 180 Deficient Range <145 3 Consistent with Previous Results Reported on 06/11/19. 4 [id number] 5 SEE RESULT BELOW Name: NOREEN GORDON : [address]: Rachel Blackwell MD Acct: [id number] Unit: [id number] AGE: 89 Location: [facility] Re06/11/19 SEX: F Status: DEP ER SPEC: [id number] MARCOS: 06/11/19-[address] [facility] [address]: Rachel Blackwell MD REQ: [id number] RECD: 06/11/19 STATUS: MARY [facility] DR: Jamar Goodrich DO _ SOURCE: URINE [facility]: ORDERED: Urine Culture COMMENTS: [id number] Procedure Result Reported Site Urine Culture Final 06/13/19- 0958 ML Organism 1 KLEBSIELLA PNEUMONIAE [place] Count >100,000 (Many) CFU/ML 1. KLEBSIELLA PNEUMONIAE [...] . END OF REPORT DEPARTMENT OF PATHOLOGY, [address] [place] [address] Eder Cortez M.D. Director [facility] # [id number] 6 Market Master: [id number] 7 Because ethnic data is not always [...] 5 Kidney failure <15 (or dialysis) 8 [id number] 9 [id number] 10 Because ethnic data is not always [...] (or dialysis) Procedures Date Code Description Status 09/23/2019 76095 Stress Test Completed 09/23/2019 36618 Myocardial Perfusion Imaging Tomographic (Spect) Completed Multiple Studies 09/17/2019 64592 EKG Tracing & Interpretation Completed 09/01/2019 [id number] Colonoscopy Completed Medical Devices Description No Information Available Encounters Type Date Location Provider Dx Diagnosis Office Visit 09/19/2019 [facility] Sal Treadwell C18.9 Malignant neoplasm of 10:00a [facility] MD colon, unspecified Office Visit 09/17/2019 [facility] Jamar Cee Z01.810 Encounter for 9:00a Of Elo Goodrich DO FACBen preprocedural cardiovascular examination C18.9 Malignant neoplasm of colon, unspecified I10 Essential (primary) hypertension D50.9 Iron deficiency anemia, unspecified N18.9 Chronic kidney disease, unspecified 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 pain M54.6 Pain in thoracic spine R70.0 Elevated erythrocyte sedimentation rate D64.9 Anemia, unspecified Office Visit 06/30/2019 3:00p [facility] Michael Lowe M54.5 Low back Of Manipulator Operator M.D. pain M54.6 Pain in thoracic spine R70.0 Elevated erythrocyte sedimentation rate D64.9 Anemia, unspecified M79.10 Myalgia, unspecified site Assessments Date Code Description Provider 09/24/2019 C18.9 Malignant neoplasm of colon, Sal Bennett MD unspecified 09/23/2019 R94.31 Abnormal electrocardiogram [ECG] [EKG] Clau Julian M.D. 09/23/2019 Z01.810 Encounter for preprocedural Andrew Malave M.D., cardiovascular examination [facility] 09/23/2019 R94.31 Abnormal electrocardiogram [ECG] [EKG] Andrew Malave M.D., [facility] 09/19/2019 C18.9 Malignant neoplasm of colon, Sal Bennett MD unspecified 09/17/2019 Z01.810 Encounter for preprocedural Jamar Goodrich, DO [facility] cardiovascular examination 09/17/2019 C18.9 Malignant neoplasm of colon, Jamar Goodrich, DO [facility] unspecified 09/17/2019 I10 Essential (primary) hypertension Jamar Goodrich, DO [facility] 09/17/2019 D50.9 Iron deficiency anemia, unspecified Jamar Goodrich, DO [facility] 09/17/2019 N18.9 Chronic kidney disease, unspecified Jamar Goodrich, DO [facility] 09/17/2019 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 07/22/2019 M54.6 Pain in thoracic spine Michael Lowe M.D. 07/22/2019 R70.0 Elevated erythrocyte sedimentation Michael Lowe M.D. rate 07/22/2019 D64.9 Anemia, unspecified Michael Lowe M.D. 06/30/2019 M54.5 Low back pain Michael Lowe M.D. 06/30/2019 M54.6 Pain in thoracic spine Michael Lowe M.D. 06/30/2019 R70.0 Elevated erythrocyte sedimentation Michael Lowe M.D. rate 06/30/2019 D64.9 Anemia, unspecified Michael Lowe M.D. 06/30/2019 M79.10 Myalgia, unspecified site Michael Lowe M.D. Plan of Treatment Future Appointment(s):09/29/2019 7:30 am - Sal Bennett MD at [facility]11/24/2019 10:00 am - Michael Lowe M.D. at [facility]09/19/2019 - Sal Bennett, MDC18.9 Malignant neoplasm of colon, unspecifiedComments:I discussed her colon cancer with her in the room with 2 other members of her family. We talked about the nature of this near obstructing colon cancer and the risk for complete obstruction. We discussed treatment options including no treatment versus colectomy. We discussed the risks of surgery including but not limited to bleeding, infection, injury to the bowel, the ureter, other intra-abdominalcontents including the liver, anastomotic leak, AK, pneumonia, PE, arrhythmia, all explained to the patient. Again the option of no treatment was given but not recommended. We discussed her age and quality of life and she definitely wants to proceed with surgery. She wishes to proceed with colectomy, gives consent, and all questions were answered. Plan of robotic right colectomy pending her stress test results. Functional Status Description No Information Available Mental Status Description No Information Available Referrals Refer to Reason for Referral Status Appt Date Alex Hawkins MD Please evaluate patient with significant iron Sent deficiency anemia for a possible transfusion and evaluate possible etiologies [address] [place] [address] [phone]
--- OUTSIDE RECORDS SUMMARY | 2019-09-29 05:53 | XMS REPORT | Continuity of Care Document ---
:1930 External Reference #:[id number] Author Name Padmini Castro PA-C Address [address] [place] [address] Care Team Providers Name Role Phone Jomar Barth MD - Care Team Information Barrel Inspector [phone] Oncology/Phys/Osteo Caron Mace MD Care Team Information Barrel Inspector [phone] Problems Active Problems Provider Date Essential hypertension Padmini Castro PA-C Onset: 08/29/2019 Gastrointestinal tract finding Padmini Castro PA-C Onset: 08/28/2019 Melena Padmini Castro PA-C Onset: 08/28/2019 Iron deficiency anemia Padmini Castro PA-C Onset: 08/28/2019 Social History Type Date Description Comments Sex Unknown Tobacco Use Start: Unknown Patient has never smoked Smoking Status Reviewed: 08/28/19 Patient has never smoked Allergies, Adverse Reactions, Alerts Active Allergies Reaction Severity Comments Date Ampicillin 08/10/2019 Medications Active Medications SIG Qnty Indications Ordering Date Provider Peg 3350/Electrolytes use as directed 4000ml Som DCheyanne 08/28/2019 MD Jori 240gm Solution Rec Acetaminophen 1-2 by mouth 120tabs M54.9 Bella, 06/12/2019 500mg every 12 hours HAKEEM Reynolds Tablets as needed pain Lisinopril-Hydrochloro 1 by mouth every Unknown thiazide day 10-12.5mg Tablets Metoprolol Succinate 1/2 by mouth Unknown ER every day 25mg Tablets ER 24HR Iron Supplement Unknown Immunizations Description No Information Available Vital Signs Date Vital Result Comment 08/28/2019 3:07pm Height 63 inches 5'3" Weight 118.00 lb per dtr., last week BP Systolic 120 mmHg BP Diastolic 78 mmHg Heart Rate 101 /min BMI (Body Mass Index) 20.9 kg/m2 Results Test Acquired Date Facility Test Result H/L Range Note Xray 08/25/2019 [facility] Rad[facility] CT, Abd & <pending> Pelvis W/O Contrast CBC Auto 08/08/2019 N2N/CCD Import White Blood 8.5 10^3/uL 3.5-10.8 Diff Count Red Blood Count 3.72 10^6/uL 3.70-4.87 Hemoglobin 8.7 g/dL Low 12.0-16.0 Hematocrit 28 % Low 35-47 Mean Corpuscular Volume 74 fL Low 80-97 1 Mean Corpuscular Hemoglobin 23 pg Low 27-31 Mean Corpuscular HGB Conc 32 g/dL 31-36 Red Cell Distribution Width 21 % High 10-15 Platelet Count 379 10^3/uL 150-450 Mean Platelet Volume 7.6 fL 7.4-10.4 Abs Neutrophils 7.1 10^3/uL 1.5-7.7 Abs Lymphocytes 0.7 10^3/uL Low 1.0-4.8 Abs Monocytes 0.5 10^3/uL 0-0.8 Abs Eosinophils 0.1 10^3/uL 0-0.6 Abs Basophils 0.0 10^3/uL 0-0.2 Abs Nucleated RBC 0.0 10^3/uL Granulocyte % 84.0 % Lymphocyte % 8.6 % Monocyte % 5.7 % Eosinophil % 1.2 % Basophil % 0.5 % Nucleated Red Blood Cells % 0.0 1 Comp Metabolic Panel 08/08/2019 N2N/CCD Import Sodium 132 mmol/L Low 135- 145 Potassium 4.2 mmol/L 3.5-5.0 Chloride 97 mmol/L Low 101-111 Co2 Carbon Dioxide 23 mmol/L 22-32 Anion Gap 12 mmol/L High 2-11 Calcium 9.1 mg/dL 8.6-10.3 Albumin 3.7 g/dL 3.2-5.2 Total Bilirubin 0.40 mg/dL 0.2-1.0 Glucose 133 mg/dL High 70-100 Blood Urea Nitrogen 27 mg/dL High 6-24 Creatinine 1.97 mg/dL High 0.51-0.95 BUN/Creatinine Ratio 13.7 1 8-20 Total Protein 7.2 g/dL 6.4-8.9 Globulin 3.5 g/dL 2-4 Albumin/Globulin Ratio 1.1 1 1-3 Alkaline Phosphatase 61 U/L 34-104 Alt 6 U/L Low 7-52 Ast 16 U/L 13-39 Egfr Non- 23.9 1 Egfr 28.9 1 2 Lab Results 08/08/2019 N2N/CCD Import Ferritin 21.3 ng/mL 11-307 Iron & Iron Binding Capacity 08/08/2019 N2N/CCD Import Iron 99 g/dL 50 -212 Unsaturated Iron Binding < 327 ug/dL Total Iron Binding Capacity 342 g/dL 250-450 Transferrin 244 mg/dL 203-362 % Iron Saturation 29 % 15-55 Lab Results 08/06/2019 N2N/CCD Import Ict Hemoccult (1) 07/21/19 Pos Ict Hemoccult-(2) 07/22/19 Pos Ict-Hemoccult (3) 07/23/19 Pos CMP(!) 07/11/2019 [facility] Sodium(!) <pending> Potassium(!) <pending> Chloride Serum/Plasma(!) <pending> Carbon Dioxide Ser/Plasm(!) <pending> BUN - Urea Nitrogen(!) <pending> Calcium Ser/Plasma Mass/Vol(!) <pending> Creatinine Serum Mass/Vol(!) <pending> Glucose Serum(!) <pending> BUN/Creatinine Ratio(!) <pending> Albumin Serum/Plasma(!) <pending> Alkaline Phosphatase(!) <pending> Bilirubin Total Mass/Vol(!) <pending> Ast - Sgot <pending> Alt - SGPT <pending> Protein Total <pending> CBC W/Auto 07/11/2019 [facility] White Blood <pending> Differential(!) Count Ser Auto CNT RBC Red Blood Count <pending> Hemoglobin Blood <pending> Hematocrit <pending> MCV (Corpuscular Volume) <pending> MCH (Corpuscular Hemoglobin) <pending> MCHC (Corpuscular Hemog Conc) <pending> RDW <pending> Platelet Count Blood Auto CNT <pending> MPV <pending> Lymph% <pending> [place]% <pending> Neutrophil % <pending> Absolute Lymphocytes <pending> Absolute Monocytes <pending> Absolute Neutrophils <pending> CBC Auto Diff 07/11/2019 N2N/CCD Import White Blood Count 6.4 10^3/uL 3.5-10.8 Red Blood Count 3.56 10^6/uL Low 3.70-4.87 Hemoglobin 8.0 g/dL Low 12.0-16.0 Hematocrit 25 % Low 35-47 Mean Corpuscular Volume 71 fL Low 80-97 3 Mean Corpuscular Hemoglobin 23 pg Low 27-31 Mean Corpuscular HGB Conc 32 g/dL 31-36 Red Cell Distribution Width 17 % High 10-15 Platelet Count 251 10^3/uL 150-450 Mean Platelet Volume 8.8 fL 7.4-10.4 Abs Neutrophils 5.2 10^3/uL 1.5-7.7 Abs Lymphocytes 0.8 10^3/uL Low 1.0-4.8 Abs Monocytes 0.3 10^3/uL 0-0.8 Abs Eosinophils 0.0 10^3/uL 0-0.6 Abs Basophils 0.0 10^3/uL 0-0.2 Abs Nucleated RBC 0.0 10^3/uL Granulocyte % 81.7 % Lymphocyte % 12.0 % Monocyte % 5.4 % Eosinophil % 0.6 % Basophil % 0.3 % Nucleated Red Blood Cells % 0.0 1 Comp Metabolic Panel 07/11/2019 N2N/CCD Import Sodium 132 mmol/L Low 135- 145 Potassium 4.4 mmol/L 3.5-5.0 Chloride 101 mmol/L 101-111 Co2 Carbon Dioxide 20 mmol/L Low 22-32 Anion Gap 11 mmol/L 2-11 Glucose 152 mg/dL High 70-100 Blood Urea Nitrogen 39 mg/dL High 6-24 Creatinine 1.95 mg/dL High 0.51-0.95 BUN/Creatinine Ratio 20.0 1 8-20 Calcium 9.0 mg/dL 8.6-10.3 Total Protein 6.8 g/dL 6.4-8.9 Albumin 3.8 g/dL 3.2-5.2 Globulin 3.0 g/dL 2-4 Albumin/Globulin Ratio 1.3 1 1-3 Total Bilirubin 0.40 mg/dL 0.2-1.0 Alkaline Phosphatase 64 U/L 34-104 Alt 5 U/L Low 7-52 Ast 13 U/L 13-39 Egfr Non- 24.2 1 Egfr 29.2 1 4 Iron & Iron Binding Capacity 07/11/2019 N2N/CCD Import Iron 23 g/dL Low 50-212 Unsaturated Iron Binding < 381 ug/dL Total Iron Binding Capacity 396 g/dL 250-450 Transferrin 283 mg/dL 203-362 % Iron Saturation 6 % Low 15-55 Lab Results 07/11/2019 N2N/CCD Import Ferritin 7.4 ng/mL Low 11-307 Laboratory test 06/30/2019 [facility] CPK-Creatinine <pending> finding Kinase(!) Iron/Uibc/Tibc/%Sat 06/30/2019 [facility] Iron-Total <pending> Iron-Uibc <pending> Iron Binding Capacity Mass/Vol <pending> % Iron Saturation <pending> Laboratory test 06/30/2019 [facility] Ferritin Ser/Plas <pending> finding Mass/Vol(!) Vitamin B12 Ser Mass/Vol <pending> Folate Serum <pending> C-Reative Protein <pending> CBC W/Auto 06/30/2019 [facility] White Blood <pending> Differential(!) Count Ser Auto CNT RBC Red Blood Count <pending> Hemoglobin Blood <pending> Hematocrit <pending> MCV (Corpuscular Volume) <pending> MCH (Corpuscular Hemoglobin) <pending> MCHC (Corpuscular Hemog Conc) <pending> RDW <pending> Platelet Count Blood Auto CNT <pending> MPV <pending> Lymph% <pending> [place]% <pending> Neutrophil % <pending> Absolute Lymphocytes <pending> Absolute Monocytes <pending> Absolute Neutrophils <pending> 1 Consistent with Previous Results Reported on 07/11/19 2 Because ethnic data is not always readily [...] 15-29 5 Kidney failure <15 (or dialysis) 3 Consistent with Previous Results Reported on 06/30/19 4 Because ethnic data is not always readily [...] Information Available Assessments Date Code Description Provider 08/28/2019 D50.9 Iron deficiency anemia, unspecified Padmini Castro PA-C 08/28/2019 K92.1 Melmaritza Castro PA-C 08/28/2019 R93.3 Abnormal findings on diagnostic imaging Padmini Castro PA-C of other parts of digestive tract Plan of Treatment Future Appointment(s):09/01/2019 9:00 am - Som Hsieh MD at [facility]08/28/2019 - JO ANN DoyleCD50.9 Iron deficiency anemia, nnjwzogogzyC89.1 LikdfiY74.3 Abnormal findings on diagnostic imaging of other parts of digestive tract Functional Status Description No Information Available Mental Status Description No Information Available Referrals Description No Information Available
--- OUTSIDE RECORDS SUMMARY | 2019-09-29 05:53 | XMS REPORT | Continuity of Care Document ---
:1930 External Reference #:[id number] Author Name Caron Mace M.D. Address [address] [facility] [place] [address] Care Team Providers Name Role Phone Caron Mace M.D. - Family Medicine Care Team Information Registered Pharmacy Technician Unavailable Problems Active Problems Provider Date Scoliosis deformity of spine Caron Mace M.D. Onset: 07/07/2019 Anemia Onset: Iron deficiency anemia Crystal Lozano NP Onset: 07/14/2019 Chronic kidney disease Crystal Lozano NP Onset: 07/14/2019 Essential hypertension Caron Mace M.D. Onset: 08/20/2019 Anemia due to chronic blood loss Caron Mace M.D. Onset: 08/21/2019 Social History Type Date Description Comments Sex Unknown Tobacco Use Start: Unknown Never Smoked Cigarettes ETOH Use Rare Allergies, Adverse Reactions, Alerts Active Allergies Reaction Severity Comments Date Ampicillin 07/30/1999 Sulfa Drugs 07/30/1999 Macrodantin 07/30/1999 Medications Active Medications SIG Qnty Indications Ordering Provider Date Boost High Protein 1 unit by mouth 1896ml R63.4 Caron Mace M.D. 2018 three times a Liquid day Tramadol 50MG twice a day as Unknown needed Iron 45MG 1 tab three Unknown times daily History Medications Nitrofurantoin 1 by mouth 10caps Gail 06/12/2019 - Macrocrystal twice a day x Bella, DUST MIXER 07/11/2019 100mg 7Days Capsules Acetaminophen 1-2 by mouth 120tabs M54.9 Gail 06/12/2019 - 500mg every 12 hours Bella, DUST MIXER 08/21/2019 Tablets as needed pain Immunizations CPT Code Status Date Vaccine Lot # [id number] Given 07/11/2019 Influenza Virus Vaccine, Recombinant Dna, [id number] Hemagglutnin Protein On Vital Signs Date Vital Result Comment 08/27/2019 10:02am BP Systolic 132 mmHg BP Diastolic 70 mmHg Heart Rate 76 /min Body Temperature 97.9 F Respiratory Rate 16 /min 08/21/2019 11:56am BP Systolic 100 mmHg BP Diastolic 72 mmHg Heart Rate 62 /min Body Temperature 97.9 F Respiratory Rate 16 /min Height 61.5 inches 5'1.50" Weight 118.00 lb BMI (Body Mass Index) 21.9 kg/m2 Results Test Date Facility Test Result H/L Range Note CBC Auto [place] 08/08/2019 [facility] [place] Count 8.5 10^3/uL Normal 3.5- 10.8 Red Blood Count 3.72 10^6/uL Normal 3.70-4.87 Hemoglobin 8.7 g/dL Low 12.0-16.0 Hematocrit 28 % Low 35-47 Mean Corpuscular Volume 74 fL Low 80-97 1 Mean Corpuscular Hemoglobin 23 pg Low 27-31 Mean Corpuscular HGB Conc 32 g/dL Normal 31-36 Red Cell Distribution Width 21 % High 10-15 Platelet Count 379 10^3/uL Normal 150-450 Mean Platelet Volume 7.6 fL Normal 7.4-10.4 Abs Neutrophils 7.1 10^3/uL Normal 1.5-7.7 Abs Lymphocytes 0.7 10^3/uL Low 1.0-4.8 Abs Monocytes 0.5 10^3/uL Normal 0-0.8 Abs Eosinophils 0.1 10^3/uL Normal 0-0.6 Abs Basophils 0.0 10^3/uL Normal 0-0.2 Abs Nucleated RBC 0.0 10^3/uL Granulocyte % 84.0 % Lymphocyte % 8.6 % Monocyte % 5.7 % Eosinophil % 1.2 % Basophil % 0.5 % Nucleated Red Blood Cells % 0.0 Comp Metabolic Panel 08/08/2019 [facility] [place]odium 132 mmol/L Low 135-145 Potassium 4.2 mmol/L Normal 3.5-5.0 Chloride 97 mmol/L Low 101-111 Co2 Carbon Dioxide 23 mmol/L Normal 22-32 Anion Gap 12 mmol/L High 2-11 Calcium 9.1 mg/dL Normal 8.6-10.3 Albumin 3.7 g/dL Normal 3.2-5.2 Total Bilirubin 0.40 mg/dL Normal 0.2-1.0 Glucose 133 mg/dL High 70-100 Blood Urea Nitrogen 27 mg/dL High 6-24 Creatinine 1.97 mg/dL High 0.51-0.95 BUN/Creatinine Ratio 13.7 Normal 8-20 Total Protein 7.2 g/dL Normal 6.4-8.9 Globulin 3.5 g/dL Normal 2-4 Albumin/Globulin Ratio 1.1 Normal 1-3 Alkaline Phosphatase 61 U/L Normal 34-104 Alt 6 U/L Low 7-52 Ast 16 U/L Normal 13-39 Egfr Non- 23.9 >60 Egfr 28.9 >60 2 Laboratory test finding 08/08/2019 [facility] [place]ritin 21.3 ng/mL Normal 11-307 Iron & Iron Binding Capacity 08/08/2019 [facility] [place] Iron 99 g/dL Normal 50-212 Unsaturated Iron Binding < 327 g/dL Total Iron Binding Capacity 342 g/dL Normal 250-450 Transferrin 244 mg/dL Normal 203-362 % Iron Saturation 29 % Normal 15-55 Ict Hemoccult (Fma) 08/06/2019 [facility] Ict Hemoccult (1) 07/21/19 POS (607)- - Ict Hemoccult-(2) 07/22/19 POS Ict-Hemoccult (3) 07/23/19 POS CBC Auto Diff 07/11/2019 [facility] [place] Blood Count 6.4 10^3/uL Normal 3.5- 10.8 Red Blood Count 3.56 10^6/uL Low 3.70-4.87 Hemoglobin 8.0 g/dL Low 12.0-16.0 Hematocrit 25 % Low 35-47 Mean Corpuscular Volume 71 fL Low 80-97 3 Mean Corpuscular Hemoglobin 23 pg Low 27-31 Mean Corpuscular HGB Conc 32 g/dL Normal 31-36 Red Cell Distribution Width 17 % High 10-15 Platelet Count 251 10^3/uL Normal 150-450 Mean Platelet Volume 8.8 fL Normal 7.4-10.4 Abs Neutrophils 5.2 10^3/uL Normal 1.5-7.7 Abs Lymphocytes 0.8 10^3/uL Low 1.0-4.8 Abs Monocytes 0.3 10^3/uL Normal 0-0.8 Abs Eosinophils 0.0 10^3/uL Normal 0-0.6 Abs Basophils 0.0 10^3/uL Normal 0-0.2 Abs Nucleated RBC 0.0 10^3/uL Granulocyte % 81.7 % Lymphocyte % 12.0 % Monocyte % 5.4 % Eosinophil % 0.6 % Basophil % 0.3 % Nucleated Red Blood Cells % 0.0 Comp Metabolic Panel 07/11/2019 [facility] [place] Sodium 132 mmol/L Low 135-145 Potassium 4.4 mmol/L Normal 3.5-5.0 Chloride 101 mmol/L Normal 101-111 Co2 Carbon Dioxide 20 mmol/L Low 22-32 Anion Gap 11 mmol/L Normal 2-11 Glucose 152 mg/dL High 70-100 Blood Urea Nitrogen 39 mg/dL High 6-24 Creatinine 1.95 mg/dL High 0.51-0.95 BUN/Creatinine Ratio 20.0 Normal 8-20 Calcium 9.0 mg/dL Normal 8.6-10.3 Total Protein 6.8 g/dL Normal 6.4-8.9 Albumin 3.8 g/dL Normal 3.2-5.2 Globulin 3.0 g/dL Normal 2-4 Albumin/Globulin Ratio 1.3 Normal 1-3 Total Bilirubin 0.40 mg/dL Normal 0.2-1.0 Alkaline Phosphatase 64 U/L Normal 34-104 Alt 5 U/L Low 7-52 Ast 13 U/L Normal 13-39 Egfr Non- 24.2 >60 Egfr 29.2 >60 4 Iron & Iron Binding Capacity 07/11/2019 [facility] [place] Iron 23 g/dL Low 50-212 Unsaturated Iron Binding < 381 g/dL Total Iron Binding Capacity 396 g/dL Normal 250-450 Transferrin 283 mg/dL Normal 203-362 % Iron Saturation 6 % Low 15-55 Laboratory test finding 07/11/2019 [facility] [place] Ferritin 7.4 ng/mL Low 11-307 1 Consistent with Previous Results Reported on [...] Date Location Provider Dx Diagnosis Office Visit 08/21/2019 Main Office Caron Mace M.D. 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 08/27/2019 N18.9 Chronic kidney disease, unspecified Caron Mace M.D. 08/27/2019 R63.4 Abnormal weight loss Caron Mace M.D. 08/27/2019 K92.1 Haileymaritza Mace M.D. 08/27/2019 D50.0 Iron deficiency anemia secondary to blood Caron Mace M.D. loss (chronic) 08/27/2019 I10 Essential (primary) hypertension Caron Mace M.D. 08/21/2019 Z00.01 Encounter for general adult medical Caron Mace M.D. examination with abnormal findings 08/21/2019 D50.9 Iron deficiency anemia, unspecified Caron Mace M.D. 08/21/2019 N18.9 Chronic kidney disease, unspecified Caron Mace M.D. 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 08/21/2019 K92.1 Haileymaritza Mace M.D. 08/21/2019 R63.4 Abnormal weight loss Caron Mace M.D. 08/21/2019 D50.0 Iron deficiency anemia secondary to blood Caron Mace M.D. loss (chronic) 08/21/2019 I10 Essential (primary) hypertension Caron Mace M.D. 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 at [facility]08/27/2019 - Caron Mace M.D.C18.2 Malignant neoplasm of ascending colonComments:discussed likely colon cancer, Noreen would like to pursue further treatment, will refer to GI and Dr Barth to be seen ohnlazW87.9 Chronic kidney disease, udepherpcelN32.4 Abnormal weight lossK92.1 YkqggcD20.0 Iron deficiency anemia secondary to blood loss (chronic)I10 Essential (primary) hypertensionComments:continue off medications, If >150/90 will restartAllComments:Medication Management Patient Understands medications she's taking? Yes No Are there Barriers to Adherence? Yes No Has the patient been asked about herbal supplements and therapies, and OTC meds? Yes No Functional Status Description No Information Available Mental Status Description No Information Available Referrals Refer to Reason for Referral Status Appt Date [facility] had stool for occult blood positive Scheduled x 3, also has severe iron deficiency anemia. Is seeing [place] [address] [phone]
--- OUTSIDE RECORDS SUMMARY | 2019-09-29 05:53 | XMS REPORT | Continuity of Care Document ---
:1930 External Reference #:[id number] Author Name Caron Mace M.D. Address [address] [facility] [place] [address] Care Team Providers Name Role Phone Caron Mace M.D. - Family Medicine Care Team Information Dobie Man Unavailable Problems Active Problems Provider Date Scoliosis [...] - Macrocrystal twice a day x Bella, INSTRUCTOR TRAFFIC SAFETY 07/11/2019 100mg 7Days Capsules Acetaminophen 1-2 by mouth 120tabs M54.9 Gail 06/12/2019 - 500mg every 12 hours Bella, INSTRUCTOR TRAFFIC SAFETY 08/21/2019 Tablets as needed pain Immunizations CPT Code Status Date Vaccine Lot # [id number] Given 07/11/2019 Influenza Virus Vaccine, Recombinant Dna, [id number] Hemagglutnin Protein On Vital Signs Date Vital Result Comment 08/21/2019 11:56am BP Systolic 100 mmHg BP Diastolic 72 mmHg Heart Rate 62 /min Body Temperature 97.9 F Respiratory Rate 16 /min Height 61.5 inches 5'1.50" Weight 118.00 lb BMI (Body Mass Index) 21.9 kg/m2 07/11/2019 1:08pm BP Systolic 110 mmHg BP Diastolic 68 mmHg Heart Rate 72 /min Body Temperature 97.0 F Respiratory Rate 20 /min Weight 124.00 lb Results Test Date Facility Test Result H/L Range Note CBC Auto Diff 08/08/2019 [facility] [place] White Blood Count 8.5 10^3/uL Normal 3.5- [...] Cells % 0.0 Comp Metabolic Panel 08/08/2019 [facility] [place] Sodium 132 mmol/L Low 135-145 Potassium 4.2 [...] 28.9 >60 2 Laboratory test finding 08/08/2019 [facility] [place] Ferritin 21.3 ng/mL Normal 11-307 Iron & Iron Binding Capacity 08/08/2019 [facility] [place] Iron 99 g/dL Normal 50-212 Unsaturated Iron Binding < 327 g/dL Total Iron Binding Capacity 342 g/dL Normal 250-450 Transferrin 244 mg/dL Normal 203-362 % Iron Saturation 29 % Normal 15-55 Ict Hemoccult (Fma) 08/06/2019 [facility] Ict Hemoccult (1) 07/21/19 POS (607)- - Ict Hemoccult-(2) 07/22/19 POS Ict-Hemoccult (3) 07/23/19 POS CBC Auto Diff 07/11/2019 [facility] [place] White Blood Count 6.4 10^3/uL Normal 3.5- [...] Cells % 0.0 Comp Metabolic Panel 07/11/2019 [facility] [place] Sodium 132 mmol/L Low 135-145 Potassium 4.4 [...] 4 Iron & Iron Binding Capacity 07/11/2019 [facility] [place] Iron 23 g/dL Low 50-212 Unsaturated Iron Binding < 381 g/dL Total Iron Binding Capacity 396 g/dL Normal 250-450 Transferrin 283 mg/dL Normal 203-362 % Iron Saturation 6 % Low 15-55 Laboratory test finding 07/11/2019 [facility] [place] Ferritin 7.4 ng/mL Low 11-307 1 Consistent [...] Date Location Provider Dx Diagnosis Office Visit 07/11/2019 [facility] Crystal Cunningham D50.9 Iron deficiency 1:00p HAKEEM Lozano anemia, unspecified 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 examination with abnormal findings 08/21/2019 D50.9 Iron deficiency anemia, unspecified Caron Mace M.D. 08/21/2019 N18.9 Chronic kidney disease, unspecified Caron Mace M.D. 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 08/21/2019 K92.1 Melena Caron Mace M.D. 08/21/2019 R63.4 Abnormal weight loss Caron Mace M.D. 08/21/2019 D50.0 Iron deficiency anemia secondary to blood Caron Mace M.D. loss (chronic) 08/21/2019 I10 Essential (primary) hypertension Caron Mace M.D. 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, thoracic region Crystal Lozano , RESIDENTIAL RECYCLE DRIVER 07/11/2019 M54.9 Dorsalgia, unspecified Crystal Lozano, RESIDENTIAL RECYCLE DRIVER 07/11/2019 N18.9 Chronic kidney disease, unspecified Crystal Lozano, RESIDENTIAL RECYCLE DRIVER 07/11/2019 Z23 Encounter for immunization Crystal Lozano, RESIDENTIAL RECYCLE DRIVER 06/12/2019 M54.9 Dorsalgia, unspecified Gail Bella, INSTRUCTOR TRAFFIC SAFETY 06/12/2019 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 at [id number]/21/2019 - Caron Mace M.D.Z00.01 Encounter for general adult medical examination with abnormal findingsNew Labs:Prealbumin, Ordered: 08/21/19Comments :Encourage an active and healthy lifestyle with proper eating habits including fruits, vegetables, 6-8 glasses of water a day and monitoring portion size. Recommend 30 minutes of daily physical activityincluding walking, aerobic exercise, sports, yoga or dance. Any activity is better than no activity.Recommend routine eye and dental exams. Next physical is due in 1-2 years. Recommend annual influenza gqirjfftetzT43.9 Iron deficiency anemia, unspecifiedNew Labs:Iron, Total (Fma), Ordered: 08/21/19Ferritin (Fma/[facility]/ [facility]), Ordered: 08/21/19Comments:seeing Dr Barth, discussed seeing GI for evaluation for concern of colon cancer and chronic GI bleed; pt declines would prefer to get CT doneN18.9 Chronic kidney disease, unspecifiedComments:check labs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, thoracic regionComments:stop NSAIDS and acetaminophen kidney function is lowK92.1 MelenaNew Xrays:CT Chest W/Contrast, Ordered: 08/21/19CT Abdomen & Pelvis W/Contrast, Ordered: 08/21/19Follow up: 2 moR63.4 Abnormal weight lossNew Medication:Boost High Protein - 1 unit by mouth three times a dayNew Labs:CBC Electronic-ALL Lab [facility], Ordered: Comp Metabolic-ALL [facility], Ordered: 08/21/19Free T4 (Fma/[facility]), Ordered: 08/21/19TSH (Fma/[facility]), Ordered: 08/21/19Prealbumin, Ordered: New Xrays:CT Chest W/Contrast, Ordered: 08/21/19CT Abdomen & Pelvis W/ Contrast, Ordered: 08/21/19Comments:start boost 3 x a day ; discussed concern for colon cancer or other malignancy causing her weight loss, appetite change, bloody stools; declines GI referral ; willing to have CT done, concern for costsof medical jieajD92.0 Iron deficiency anemia secondary to blood loss ( chronic)Comments:known melena, did not get routine mammograms, colonoscopy or pap, pt doesn't [id number] Essential (primary) hypertensionNew Labs:CBC Electronic-ALL Lab [facility], Ordered: 08/21/19Comp Metabolic-[facility], Ordered: 08/21/19TSH (Fma/[facility]), Ordered: 08/21/19Comments:The patient will continue to monitor blood pressure and let me know the blood pressure results if there are readings persistently above 140/90. Goal blood pressure is less than 130/80. Recommend low salt/cardiac diet such as the Mediterranean diet and routine exercise at least 30 minutes a day. stop lisinopril/HCTZ and metoprolol given low blood pressure and heart rate, weight lossAllComments: Medication Management Patient Understands medications she's taking? Yes No Are there Barriers to Adherence? Yes No Has the patient been asked about herbal supplements and therapies, and OTC meds? Yes No Functional Status Description No Information Available Mental Status Description No Information Available Referrals Refer to Reason for Referral Status Appt Date [facility] had stool for occult blood positive x Sent 3, also has severe iron deficiency anemia. Is seeing [place] [address] [phone]
--- OUTSIDE RECORDS SUMMARY | 2019-09-29 05:53 | XMS REPORT | Continuity of Care Document ---
:1930 External Reference #:[id number] Author Name Som Hsieh MD Address [facility] [place] [address] Care Team Providers Name Role Phone Jomar Barth MD - Care Team Information Personal Injury Specialist [phone] Oncology/Phys/Osteo Caron Mace MD Care Team Information Personal Injury Specialist [phone] Problems Active Problems Provider Date Essential hypertension [...] Peg 3350/Electrolytes use as directed 4000ml Som Berger 08/28/2019 MD Jori 240gm Solution Rec Acetaminophen [...] Test Result H/L Range Note Laboratory test 09/01/2019 [facility] Surgical SEE RESULT 1 finding Pathology BELOW Xray 08/25/2019 [facility] Radiology CT, Abd & <pending> Pelvis W/O Contrast Comp Metabolic 08/08/2019 N2N/CCD Import Sodium 132 mmol/L Low 135-145 Panel Potassium 4.2 mmol/L 3.5-5.0 Chloride 97 mmol/L [...] 203-362 % Iron Saturation 29 % 15-55 CBC Auto Diff 08/08/2019 N2N/CCD Import White Blood Count 8.5 10^3/uL 3.5-10.8 Red Blood Count 3.72 10^6/uL 3.70-4.87 Hemoglobin 8.7 g/dL Low 12.0-16.0 Hematocrit 28 % Low 35-47 Mean Corpuscular Volume 74 fL Low 80-97 3 Mean Corpuscular Hemoglobin [...] Nucleated Red Blood Cells % 0.0 1 Lab Results 08/06/2019 N2N/CCD Import Ict Hemoccult [...] Auto CNT <pending> MPV <pending> Lymph% <pending> [place]% <pending> Neutrophil % <pending> Absolute Lymphocytes <pending> Absolute Monocytes <pending> Absolute Neutrophils <pending> CBC Auto Diff 07/11/2019 N2N/CCD Import White Blood Count 6.4 10^3/uL 3.5-10.8 Red Blood Count 3.56 10^6/uL Low 3.70-4.87 Hemoglobin 8.0 g/dL Low 12.0-16.0 Hematocrit 25 % Low 35-47 Mean Corpuscular Volume 71 fL Low 80-97 4 Mean Corpuscular Hemoglobin 23 pg Low 27-31 [...] Egfr Non- 24.2 1 Egfr 29.2 1 5 Iron & Iron Binding Capacity 07/11/2019 N2N/CCD [...] Auto CNT <pending> MPV <pending> Lymph% <pending> [place]% <pending> Neutrophil % <pending> Absolute Lymphocytes <pending> Absolute Monocytes <pending> Absolute Neutrophils <pending> 1 SEE RESULT BELOW Name: NOREEN GORDON : [address]: Som Hsieh MD Acct: [id number] Unit: [id number] AGE: 89 Location: [facility] Re09/01/19 SEX: F Status: DEP REF SPEC: [id number] MARCOS: 09/01/19- SUBM DR: Som Hsieh MD REQ: [id number] RECD: 09/01/19 STATUS: RACHEL REDMOND DR: Caron Mace MD _ ORDERED: LEVEL 4/4 FINAL DIAGNOSIS 1. Colon, ascending, biopsy: -- Invasive adenocarcinoma, moderately differentiated; see comment. 2. Colon, at 50 cm, biopsy: -- Tubular adenoma. -- No high grade dysplasia or malignancy. 3. Colon, at 20 cm, biopsy: -- Tubular adenoma. -- No high grade dysplasia or malignancy. 4. Colon, at 10 cm, biopsy: -- Tubular adenoma. -- No high grade dysplasia or malignancy. COMMENT: Mismatch repair protein and BRAF immunohistochemistry are pending for specimen 1 and the results will be reported in an addendum. Dr. Cortez reviewed this case in intradepartmental consultation and agrees with the diagnosis. CLINICAL HISTORY Screening/Surveillance for malignancy in asymptomatic patient CONTINUED ON NEXT PAGE DEPARTMENT OF PATHOLOGY, [address] [place] [address] Eder Cortez M.D. Director [facility] # [id number] POST-OPERATIVE DIAGNOSIS Colonoscopy: to ascending colon mass could not get through but could see cecum; polyp at 10 cm; too large; polyp at 20 cm - snare; 50 cm - biopsy GROSS DESCRIPTION 1. The specimen is received in formalin labeled, Biopsy Ascending Colon Mass, and consists of a 0.7 x 0.6 x 0.2 cm aggregate of medina-pink irregular to polypoid soft tissue fragments which is submitted entirely in one cassette. 2. The specimen is received in formalin labeled, Biopsy Colon at 50 cm, and consists of three medina-pink irregular soft tissue fragments aggregating 0.5 x 0.4 by up to 0.2 cm which are submitted entirely in one cassette. 3. The specimen is received in formalin labeled, Colon Polyp at 20 cm, and consists of a 0.2 x 0.1 x 0.1 cm medina-white irregular soft tissue fragment which is submitted entirely in one cassette. 4. The specimen is received in formalin labeled, Biopsy Colon Polyp at 10 cm, and consists of a 0.5 by up to 0.3 x 0.2 cm medina-red irregular soft tissue fragment which is submitted entirely in one cassette. Signed by and Reported on: Gail Rodriguez MD 09/02/19 1431 END OF REPORT DEPARTMENT OF PATHOLOGY, [address] [place] [address] Eder Cortez M.D. Director [facility] # [id number] SEE RESULT BELOW Name: NOREEN GORDON : [address]: Som Hsieh MD Acct: [id number] Unit: [id number] AGE: 89 Location: ENDO Re09/01/19 SEX: F Status: DEP REF SPEC: [id number] MARCOS: 09/01/19- SUBM DR: Som Hsieh MD REQ: [id number] RECD: 09/01/19 STATUS: RACHEL REDMOND DR: Caron Mace MD _ ORDERED: LEVEL 4/4 FINAL DIAGNOSIS 1. Colon, ascending, biopsy: -- Invasive adenocarcinoma, moderately differentiated; see comment. 2. Colon, at 50 cm, biopsy: -- Tubular adenoma. -- No high grade dysplasia or malignancy. 3. Colon, at 20 cm, biopsy: -- Tubular adenoma. -- No high grade dysplasia or malignancy. 4. Colon, at 10 cm, biopsy: -- Tubular adenoma. -- No high grade dysplasia or malignancy. COMMENT: Mismatch repair protein and BRAF immunohistochemistry are pending for specimen 1 and the results will be reported in an addendum. Dr. Cortez reviewed this case in intradepartmental consultation and agrees with the diagnosis. CLINICAL HISTORY Screening/Surveillance for malignancy in asymptomatic patient CONTINUED ON NEXT PAGE DEPARTMENT OF PATHOLOGY, [address] [place] [address] Eder Cortez M.D. Director [facility] # [id number] POST-OPERATIVE DIAGNOSIS Colonoscopy: to ascending colon mass could not get through but could see cecum; polyp at 10 cm; too large; polyp at 20 cm - snare; 50 cm - biopsy GROSS DESCRIPTION 1. The specimen is received in formalin labeled, Biopsy Ascending Colon Mass, and consists of a 0.7 x 0.6 x 0.2 cm aggregate of medina-pink irregular to polypoid soft tissue fragments which is submitted entirely in one cassette. 2. The specimen is received in formalin labeled, Biopsy Colon at 50 cm, and consists of three medina-pink irregular soft tissue fragments aggregating 0.5 x 0.4 by up to 0.2 cm which are submitted entirely in one cassette. 3. The specimen is received in formalin labeled, Colon Polyp at 20 cm, and consists of a 0.2 x 0.1 x 0.1 cm medina-white irregular soft tissue fragment which is submitted entirely in one cassette. 4. The specimen is received in formalin labeled, Biopsy Colon Polyp at 10 cm, and consists of a 0.5 by up to 0.3 x 0.2 cm medina-red irregular soft tissue fragment which is submitted entirely in one cassette. Signed by and Reported on: Gail Rodriguez MD 09/02/19 1431 END OF REPORT DEPARTMENT OF PATHOLOGY, [address] [place] [address] Eder Cortez M.D. Director [facility] # [id number] SEE RESULT BELOW Name: NOREEN GORDON : [address]: Som Hsieh MD Acct: [id number] Unit: [id number] AGE: 89 Location: ENDO Re09/01/19 SEX: F Status: DEP REF SPEC: [id number] MARCOS: 09/01/19- SUBM DR: Som Hsieh MD REQ: [id number] RECD: 09/01/19 STATUS: RACHEL REDMOND DR: Caron Mace MD _ ORDERED: LEVEL 4/4 FINAL DIAGNOSIS 1. Colon, ascending, biopsy: -- Invasive adenocarcinoma, moderately differentiated; see comment. 2. Colon, at 50 cm, biopsy: -- Tubular adenoma. -- No high grade dysplasia or malignancy. 3. Colon, at 20 cm, biopsy: -- Tubular adenoma. -- No high grade dysplasia or malignancy. 4. Colon, at 10 cm, biopsy: -- Tubular adenoma. -- No high grade dysplasia or malignancy. COMMENT: Mismatch repair protein and BRAF immunohistochemistry are pending for specimen 1 and the results will be reported in an addendum. Dr. Cortez reviewed this case in intradepartmental consultation and agrees with the diagnosis. CLINICAL HISTORY Screening/Surveillance for malignancy in asymptomatic patient CONTINUED ON NEXT PAGE DEPARTMENT OF PATHOLOGY, [address] [place] [address] Eder Cortez M.D. Director [facility] # [id number] POST-OPERATIVE DIAGNOSIS Colonoscopy: to ascending colon mass could not get through but could see cecum; polyp at 10 cm; too large; polyp at 20 cm - snare; 50 cm - biopsy GROSS DESCRIPTION 1. The specimen is received in formalin labeled, Biopsy Ascending Colon Mass, and consists of a 0.7 x 0.6 x 0.2 cm aggregate of medina-pink irregular to polypoid soft tissue fragments which is submitted entirely in one cassette. 2. The specimen is received in formalin labeled, Biopsy Colon at 50 cm, and consists of three medina-pink irregular soft tissue fragments aggregating 0.5 x 0.4 by up to 0.2 cm which are submitted entirely in one cassette. 3. The specimen is received in formalin labeled, Colon Polyp at 20 cm, and consists of a 0.2 x 0.1 x 0.1 cm medina-white irregular soft tissue fragment which is submitted entirely in one cassette. 4. The specimen is received in formalin labeled, Biopsy Colon Polyp at 10 cm, and consists of a 0.5 by up to 0.3 x 0.2 cm medina-red irregular soft tissue fragment which is submitted entirely in one cassette. Signed by and Reported on: Gail Rodriguez MD 09/02/19 1431 END OF REPORT DEPARTMENT OF PATHOLOGY, [address] [place] [address] Eder Cortez M.D. Director [facility] # [id number] 2 Because ethnic data is not always [...] 3 Consistent with Previous Results Reported on 07/11/19 4 Consistent with Previous Results Reported on 06/30/19 5 Because ethnic data is not always readily [...] anemia, unspecified Padmini Castro PA-C 08/28/2019 K92.1 Melena Padmini Castro PA-C 08/28/2019 R93.3 Abnormal findings on diagnostic imaging Padmini Castro PA-C of other parts of digestive tract Plan of Treatment No Information Available Functional Status Description No Information Available Mental Status Description No Information Available Referrals Description No Information Available
[2019-09-29] MEDS ORDERED: Famotidine IV* 10 MG/ML 2 ML (20 mg) IV ONE (06:00)
[2019-09-29] MEDS ORDERED: Lactated Ringers 1000 ML Bag* 1,000 ML IV SCH (06:00)
[2019-09-29] MEDS ORDERED: Clindamycin 900 MG/D5W BAG(*) 900 MG/50 ML BAG IVPB ONE (06:47)
[2019-09-29] MEDS ORDERED: Famotidine IV* 10 MG/ML 2 ML (20 mg) ONE (06:47)
[2019-09-29] MEDS ORDERED: Buffered Lidocaine 1% SYRIN* 1 ML/SYRINGE INTRADERM ONE (06:47)
[2019-09-29] MEDS ORDERED: Ciprofloxacin 400MG IVPREMIX(* 400 MG/200 ML BAG ONE (06:49)
[2019-09-29] MEDS ORDERED: Ketorolac INJ* 30 MG/ML 1 ML VIAL ONE (07:07)
[2019-09-29] MEDS ORDERED: Lidocaine 2% PF* 10 ML AMP ONE (07:07)
[2019-09-29] MEDS ORDERED: Ondansetron INJ* 2 MG/ML VIAL ONE (07:07)
[2019-09-29] MEDS ORDERED: Propofol* 10 MG/ML 20 ML BTL ONE (07:07)
[2019-09-29] MEDS ORDERED: Dexamethasone IV* 4 MG/ML 1 ML (4 MG) ONE (07:07)
[2019-09-29] MEDS ORDERED: Lidocaine 2% PF * 5 ML VIAL ONE (07:07)
[2019-09-29] MEDS ORDERED: Phenylephrine 10 MG/ML VIAL* 1 ML VIAL ONE (07:07)
[2019-09-29] MEDS ORDERED: Rocuronium* 10 MG/ML VIAL ONE (07:08)
[2019-09-29] MEDS ORDERED: fentaNYL* 50 MCG/ML 2 ML VIAL (100 MCG VIAL) ONE (07:08)
[2019-09-29] MEDS ORDERED: Midazolam* 1 MG/ML 5 ML VIAL (5 MG) ONE (07:08)
[2019-09-29] MEDS ORDERED: KETAMINE HCL* 50 MG/ML 10 ML VIAL ONE (07:08)
[2019-09-29] MEDS ORDERED: EPINEPHRINE 1 MG/ML 1 ML VIAL ONE (07:09)
[2019-09-29] MEDS ORDERED: Bupivacaine 0.5%* 50 ML MDV VIAL ONE (07:13)
[2019-09-29] MEDS ORDERED: EPHEDrine (Pressors)* 50 MG/ML VIAL ONE (07:36)
[2019-09-29] MEDS ORDERED: HYDROmorphone INJ1* 1 MG/ML SYRINGE IV PRN (09:26)
[2019-09-29] MEDS ORDERED: Levalbuterol 0.63MG/3ML NEB* UNIT OF USE INH PRN (09:26)
[2019-09-29] MEDS ORDERED: fentaNYL* 50 MCG/ML 2 ML VIAL (100 MCG VIAL) IV PRN (09:26)
[2019-09-29] MEDS ORDERED: Ondansetron INJ* 2 MG/ML VIAL IV PRN ×2 (09:26→11:07)
[2019-09-29] MEDS ORDERED: Naloxone* 0.4 MG/ML 1 ML VIAL IV PRN (09:26)
[2019-09-29] MEDS ORDERED: Acetaminophen IV 1GM/100ML * 100 ML ONE (09:31)
[2019-09-29] MEDS ORDERED: oxyCODONE/Acetamin 5/325 MG* TAB PO PRN (10:46)
[2019-09-29] MEDS ORDERED: Acetaminophen TAB* 325 MG PO PRN (10:46)
[2019-09-29] MEDS ORDERED: Docusate CAP* 100 MG PO PRN (10:46)
[2019-09-29] MEDS ORDERED: HYDROmorphone INJ* 0.5 MG/0.5 ML SYRINGE IV SLOW PU PRN (10:46)
[2019-09-29 12:09] LABS: ABS Lymphocytes 0.3 10^3/ul (1.0-4.8); ABS Monocytes 0.2 10^3/ul (0-0.8); ABS Neutrophils 8.7 10^3/ul (1.5-7.7); Eosinophil % 0.3 %; Hematocrit 31 % (35-47); Hemoglobin 10.3 g/dL (12.0-16.0); Lymphocyte % 2.9 %; Mean Corpuscular HGB Conc 33 g/dL (31-36); Mean Corpuscular Hemoglobin 28 pg (27-31); Mean Corpuscular Volume 86 fL (80-97); Mean Platelet Volume 8.9 fL (7.4-10.4); Platelet Count 173 10^3/uL (150-450); Red Blood Count 3.62 10^6 /uL (3.70-4.87); Red Cell Distribution Width 19 % (10-15); White Blood Count 9.2 10^3/uL (3.5-10.8)
[2019-09-29 12:19] LABS: INR 0.98 (0.82-1.09)
[2019-09-29 12:23] LABS: EGFR African American 41.1 (>60)
[2019-09-29] MEDS: Lactated Ringers 1000 ML Bag* 1,000 ML IV SCH (13:41)
[2019-09-29] MEDS ORDERED: Heparin VIAL(*) 5000 UNITS/ML VIAL (FIVE THOUSAND) SUBCUT SCH (14:00)
[2019-09-29] MEDS: Heparin VIAL(*) 5000 UNITS/ML VIAL (FIVE THOUSAND) SUBCUT SCH ×2 (14:54→22:05)
--- NOTE | 2019-09-29 15:08 | OP ---
DATE OF OPERATION: 09/29/19 - ROOM #336 DATE OF : [birth year] ATTENDING SURGEON: Sal Bennett MD SCREEN MACHINE OPERATOR: CHAIRA Alan PRE-OP DIAGNOSIS: Ascending colon mass. POST-OP DIAGNOSIS: Ascending colon mass. OPERATIVE PROCEDURE: Robotic ascending colectomy with stapled intracorporeal anastomosis. INDICATIONS FOR PROCEDURE: Ascending colon cancer noted on the colonoscopy. Risks of colectomy included, but not limited to bleeding, infection, injury to intraabdominal contents including the bowel, ureter, liver, other intraabdominal contents, anastomotic leak, OH, pneumonia, PE, arrhythmia, and even explained to the patient, who seemed to understand and agreed to the procedure and all questions were answered. DESCRIPTION OF PROCEDURE: The patient was taken to the operating room and placed supine. Preoperative antibiotics were given. After the successful induction of general endotracheal anesthesia, the abdomen was prepped and draped in a sterile fashion. A time-out was performed indicating correct patient, here for the correct procedure. A 5 mm trocar was placed in the infraumbilical position under direct visualization of the camera using an Optiview bladeless trocar. Pneumoperitoneum was achieved to 12 mmHg. The camera was placed in the abdomen and the abdomen was scanned. There was no obvious injury from trocar placement. A left quadrant 8 mm robotic trocar was placed along with a 12 mm robotic trocar, lower midline abdominal 8 mm robotic trocar and a left lower quadrant 8 mm robotic trocar were all placed under direct visualization of the camera as well as an 8 mm assist port. The 5 mm trocar was removed. Skin was closed with a 3-0 nylon temporarily. Small bowel laparoscopically generally focused into the pelvis. The omentum was brought up and over the transverse colon. The patient was placed in reverse Trendelenburg position, tilted slightly towards the left. The robot was brought and then docked. The transverse colon was retracted up and the duodenum was visualized. Ileocolic vessels were visualized. A window was made below them and a plane was developed, bringing the mesentery up anteriorly and keeping the retroperitoneum down below. The ileocolic vessels were taken with the vessel sealer. Dissection was then continued in this plane, bringing the mesentery up, keeping the retroperitoneum down. Moving towards the patient's right and under the cecum, the ascending colon, the hepatic flexure, and proximal transverse colon. The plane was developed all the way so that the abdominal wall was visualized as well as the right lobe of the liver. Again, the duodenum was identified through this plane and dissection medial to lateral avoided. The mesentery was then taken up to a point in the proximal transverse colon, which is at least 5 cm away from the inked area of the colon which was actually closer to the hepatic flexure. The mesentery was then taken from the point of dissection of the ileocolic vessels towards the terminal ileum. The colon was mobilized medially along the lateral peritoneal reflection just medial to the white line of Toldt using the vessel sealer. Firefly was used to evaluate the blood supply to the terminal ileum and a portion of the terminal ileum was divided using a 60 mm stapler with a blue load in an area where there was good blood supply to the terminal ileum. The mesentery was then taken up towards the hepatic flexure more completely avoiding the duodenum and to a spot chosen distal to the tumor by at least 5 cm. The colon was then divided there with a 60 mm stapler with a blue load. Specimen was completely freed and placed up and over the liver. The terminal ileum was then brought up to the right upper quadrant where it laid nicely against the transverse colon. A point was chosen 6 mm distal to the staple line on the transverse colon and an enterotomy was made. Another enterotomy was made 2 cm from the staple line on the ileum and a stapled [id number] anastomosis was performed. 2-0 Vicryl stay sutures were then placed in the crotch of the staple line on either end and the defect was then closed with a running 3-0 V-Loc suture and then the suture was turned back and a Lembert type 2 layer closure was then performed over this closure and then along the anterior surface of the staple line. Posterior staple line was checked, was completely intact. There were no open areas noted. Firefly had been used prior to dividing the transverse colon and it showed good blood supply to the colon. Firefly was once again used after the anastomosis was performed and closed and showed good blood supply to both the small and large bowel. The omentum was placed over the anastomosis and down in the right lower quadrant. An Endo bag was then placed through the 12 mm port site. The specimen was placed at the Endo bag and the string was brought out through the lower midline assist port. Incision was made, Pfannenstiel, and the fascia was opened slightly and the specimen was removed. Peritoneum was closed with a 3-0 Vicryl. The muscle was brought together in the midline and the fascia was closed with a running #1 PDS suture. The wound was irrigated copiously with warm saline. The skin was closed with corina at all sites after all the trocars were removed. Antibiotic ointment and sterile dressing was applied. EBL was minimal for the case. The patient tolerated the procedure well. She was extubated and taken to recovery room in stable condition. [id number]/[facility] #: [id number] MTDKonrad
[2019-09-30] MEDS: Lactated Ringers 1000 ML Bag* 1,000 ML IV SCH (03:20)
[2019-09-30] MEDS: Heparin VIAL(*) 5000 UNITS/ML VIAL (FIVE THOUSAND) SUBCUT SCH ×3 (05:34→21:59)
[2019-09-30 06:38] LABS: Activated Partial Thrombo Time 25.5 seconds (26.0-38.0); INR 1.03 (0.82-1.09)
[2019-09-30 07:04] LABS: ABS Lymphocytes 0.4 10^3/ul (1.0-4.8); ABS Monocytes 0.6 10^3/ul (0-0.8); ABS Neutrophils 7.8 10^3/ul (1.5-7.7); Eosinophil % 0.1 %; Hematocrit 31 % (35-47); Hemoglobin 9.6 g/dL (12.0-16.0); Lymphocyte % 4.9 %; Mean Corpuscular HGB Conc 31 g/dL (31-36); Mean Corpuscular Hemoglobin 29 pg (27-31); Mean Corpuscular Volume 95 fL (80-97); Mean Platelet Volume 9.5 fL (7.4-10.4); Platelet Count 118 10^3/uL (150-450); Red Blood Count 3.28 10^6 /uL (3.70-4.87); Red Cell Distribution Width 19 % (10-15); White Blood Count 8.8 10^3/uL (3.5-10.8)
[2019-09-30] MEDS: Polyethylene Glycol 3350* 17 GM PACKET PO SCH ×2 (14:12→21:58)
[2019-10-01 00:25] LABS: Hematocrit 30 % (35-47); Hemoglobin 10.1 g/dL (12.0-16.0); Mean Corpuscular HGB Conc 34 g/dL (31-36); Mean Corpuscular Hemoglobin 29 pg (27-31); Mean Corpuscular Volume 86 fL (80-97); Mean Platelet Volume 8.8 fL (7.4-10.4); Platelet Count 235 10^3/uL (150-450); Red Blood Count 3.48 10^6 /uL (3.70-4.87); Red Cell Distribution Width 18 % (10-15); White Blood Count 8.7 10^3/uL (3.5-10.8)
[2019-10-01] MEDS: Heparin VIAL(*) 5000 UNITS/ML VIAL (FIVE THOUSAND) SUBCUT SCH (06:28)
[2019-10-01 06:31] LABS: ABS Eosinophils 0.2 10^3/ul (0-0.6); ABS Lymphocytes 0.5 10^3/ul (1.0-4.8); ABS Monocytes 0.4 10^3/ul (0-0.8); ABS Neutrophils 4.4 10^3/ul (1.5-7.7); Eosinophil % 3.8 %; Hematocrit 27 % (35-47); Hemoglobin 9.5 g/dL (12.0-16.0); Lymphocyte % 8.9 %; Mean Corpuscular HGB Conc 35 g/dL (31-36); Mean Corpuscular Hemoglobin 30 pg (27-31); Mean Corpuscular Volume 85 fL (80-97); Mean Platelet Volume 9.1 fL (7.4-10.4); Platelet Count 177 10^3/uL (150-450); Red Blood Count 3.18 10^6 /uL (3.70-4.87); Red Cell Distribution Width 18 % (10-15); White Blood Count 5.5 10^3/uL (3.5-10.8)
[2019-10-01 06:41] LABS: Activated Partial Thrombo Time 37.2 seconds (26.0-38.0); INR 1.04 (0.82-1.09)
[2019-10-01] MEDS: Polyethylene Glycol 3350* 17 GM PACKET PO SCH (07:41)
[2019-10-01] MEDS ORDERED: Pantoprazole IV* 40 MG IV ONE (10:00)
--- NOTE | 2019-10-01 13:32 | PN ---
Progress Note - Progress Note Date of Service: 10/01/19 SOAP: Subjective: []"hungry", tolerating diet, multiple BM's through the night, dark< ? old blood like per nursing and patient Objective: [] Intake & Output 09/29/19 09/30/19 10/01/19 10/02/19 06:59 06:59 06:59 06:59 Intake Total 3210 3336 Output Total 550 200 250 Balance 2660 3136 -250 Weight 114 lb Intake: IV Fluids 2890 466 LR 2890 466 IVPB 0 LR 0 Oral 320 2870 Output: Urine 200 250 Macias 550 Other: Estimated Void Large Large # Bowel Movements 4 1 Estimated Stool Amount Large Large # Voids 1 4 Temp Pulse Resp BP Pulse Ox 97.4 F 73 16 123/71 100 10/01/19 12:05 10/01/19 12:05 10/01/19 12:05 10/01/19 12:05 10/01/19 12:05 Abnormal Lab Results 10/01/19 10/01/19 10/01/19 00:20 06:09 06:09 WBC 8.7 5.5 RBC 3.48 L 3.18 L Hgb 10.1 L 9.5 L Hct 30 L 27 L MCV 86 85 MCH 29 30 MCHC 34 35 RDW 18 H 18 H Plt Count 235 177 MPV 8.8 9.1 Neut % (Auto) 80.2 Lymph % (Auto) 8.9 [place] % (Auto) 6.5 Eos % (Auto) 3.8 Baso % (Auto) 0.6 Absolute Neuts (auto) 4.4 Absolute Lymphs (auto) 0.5 L Absolute Monos (auto) 0.4 Absolute Eos (auto) 0.2 Absolute Basos (auto) 0.0 Absolute Nucleated RBC 0.0 Nucleated RBC % 0.0 INR (Anticoag Therapy) 1.04 APTT 37.2 abdomen soft, non distended, non tender, incisions CDI Assessment: []stable, likely old blood, add PPI Plan: [] recheck H/H and bmp likely home soon
[2019-10-01 14:25] LABS: Hematocrit 29 % (35-47); Hemoglobin 9.7 g/dL (12.0-16.0)
[2019-10-01 14:59] LABS: BUN/Creatinine Ratio 13.8 (8-20); Calcium 8.7 mg/dL (8.6-10.3); EGFR African American 46.7 (>60); EGFR Non-African American 38.6 (>60)
[2019-10-01 16:13] VITALS: BP 131/73
[2019-10-01] MEDS ORDERED: Pantoprazole TAB * 40 MG TAB PO SCH (21:00)
== END 2019-10-01 17:10 | disposition home or self-care (01) | DRG 330 ==
LOC: AA 05:48 → SSU 10:46
PROVIDERS: ADMIT Surgery; ATTEND Surgery
PROC: 8E0W4CZ Robotic Assisted Procedure of Trunk Region, Percutaneous Endoscopic Approach (ICD-10-PCS; 2019-09-29)
PROC: 0DTK4ZZ Resection of Ascending Colon, Percutaneous Endoscopic Approach (ICD-10-PCS; principal; 2019-09-29 07:30)
DX: C18.2 Malignant neoplasm of ascending colon (principal); I45.3 Trifascicular block; M19.90 Unspecified osteoarthritis, unspecified site; E78.00 Pure hypercholesterolemia, unspecified; M06.9 Rheumatoid arthritis, unspecified; M10.9 Gout, unspecified; N18.9 Chronic kidney disease, unspecified; M54.10 Radiculopathy, site unspecified; I12.9 Hypertensive chronic kidney disease with stage 1 through stage 4 chronic kidney disease, or unspecified chronic kidney disease; D50.9 Iron deficiency anemia, unspecified; Z88.0 Allergy status to penicillin; Z88.2 Allergy status to sulfonamides; Z88.1 Allergy status to other antibiotic agents
CPT/HCPCS: 36415; 80048; 82565; 84520; 85014; 85018; 85025; 85027; 85610; 85730; 88309; A9270-GY; J0744; J1100; J1644; J1885; J2001; J2250; J2405; J2704; J3010; J3490